=== PATIENT | female | born 1930 | race Hispanic/Latino ===

== ENCOUNTER 2016-11-13 20:30 | Inpatient (IN) | payer MEDICARE ==
[2016-11-13] MEDS ORDERED: NACL 0.9% 1000 ML 1,000 ML ONE (20:42)
[2016-11-13] MEDS ORDERED: CARDIZEM ONE (20:52)
[2016-11-13] MEDS ORDERED: CARDIZEM IV ONE (21:17)
[2016-11-13] MEDS ORDERED: NACL 0.9% 1000 ML 1,000 ML IV ONE (21:21)
--- NOTE | 2016-11-13 21:32 | Emergency Department Report ---
HPI - General Chief Complaint: Fall Time Seen by Provider: 11/13/16 20:54 - HPI HPI: This is a 86-year-old female presents to the emergency department by EMS from home after EMS was called when the patient had a fall and the need assistance. This allegedly was the second fall today. The patient herself does have some history of dementia but has no complaints as to any pain status post fall. When EMS got to the house and they put her up in a chair they found her to have a very fast heart rate. They did an EKG and thought it was SVT and attempted 6 mg and then 12 mg of adenosine without any conversion. Patient presents to the emergency department still with significant tachycardia but no particular complaints. She does not have any past medical history but also has not seen a physician since the mid-s. ED Past Medical Hx - Past Medical History Previous Medical History?: No - Surgical History Past Surgical History?: Yes Additional Surgical History: hysterectomy (1977) - Social History Smoking Status: Never Smoker Substance Use Type: None - Medications Home Medications: Home Medications Medication Instructions Recorded Confirmed Last Taken Type No Known Home Medications [No 11/13/16 11/13/16 Unknown History Reported Home Medications] ED Review of Systems ROS: Stated complaint: POSSIBLE SVT Other details as noted in HPI Comment: All other systems reviewed and negative Constitutional: denies: chills, fever Eyes: denies: eye pain, eye discharge, vision change ENT: denies: ear pain, throat pain Respiratory: denies: cough, shortness of breath, wheezing Cardiovascular: other (tachycardia). denies: chest pain, palpitations Gastrointestinal: denies: abdominal pain, nausea, diarrhea Genitourinary: denies: urgency, dysuria, discharge Musculoskeletal: denies: back pain, joint swelling, arthralgia Skin: denies: rash, lesions Neurological: weakness. denies: headache Physical Exam - Physical Exam Vital Signs: Vital Signs 11/13/16 11/13/16 20:41 21:12 Temperature 99.7 F H Pulse Rate 161 H 87 Respiratory 19 14 Rate Blood Pressure 110/78 123/54 [Left] O2 Sat by Pulse 96 98 Oximetry Physical Exam: GENERAL: The patient is well-developed well-nourished. HEENT: Normocephalic. Atraumatic. Extraocular motions are intact. Patient has moist mucous membranes. Pupils equal reactive to light bilaterally. NECK: Supple. Trachea is midline. CHEST/LUNGS: Clear to auscultation. There is no respiratory distress noted. HEART/CARDIOVASCULAR: Irregularly irregular with moderate to severe tachycardia. ABDOMEN: Abdomen is soft, nontender. Patient has normal bowel sounds. There is no abdominal distention. SKIN: Skin is warm and dry. NEURO: The patient is awake, alert. The patient is cooperative. The patient has no focal neurologic deficits. The patient has normal speech. MUSCULOSKELETAL: There is no tenderness or deformity. There is no limitation range of motion. There is no evidence of acute injury. ED Course Vital Signs 11/13/16 11/13/16 20:41 21:12 Temperature 99.7 F H Pulse Rate 161 H 87 Respiratory 19 14 Rate Blood Pressure 110/78 123/54 [Left] O2 Sat by Pulse 96 98 Oximetry ED Medical Decision Making - Lab Data Result diagrams: 11/13/16 21:14 11/13/16 21:14 - EKG Data -: EKG Interpreted by Me - EKG Data Interpretation: other (initial fibrillation, left axis deviation, rate of 90 bpm , LVH, Q waves in septal leads, nonspecific ST-T waves) The initial EKG. More like a SVT at 162 bpm with some nonspecific ST-T waves 11/13/16 21:33 - Radiology Data Radiology results: report reviewed, image reviewed interpreted by me: Chest x-ray does not show any pleural effusion, obvious signs of pneumonia or any pneumothorax. No acute process noted. CT of the head does not show any acute bleed, shift, mass, ischemia or skull fracture. - Medical Decision Making 86-year-old female presents the emergency department after she was having some falls and needed assistance getting up. The patient has no real complaints when she arrives but she was found to have severe tachycardia by EMS and upon presentation to the ER. The EKG was very fast and appeared consistent with SVT so she was given adenosine both in route as well as when she arrived to the emergency department. She did not convert but when it slowed down and looked irregular. Patient had an regular pulse. She was given IV dose of Cardizem and the heart rate slowed down and improved and repeat EKG showed atrial fibrillation with RVR. This is new onset for this patient. She eventually needed another bolus of Cardizem as well as starting the drip. The patient would most likely need anticoagulation, and with her recent falls, a CT of the head was done that did not show any bleed, shift, mass or any acute process. Patient's labs show some mild renal insufficiency, negative troponins. She was given a dose of Lovenox for anticoagulation and will be admitted to the hospital for further evaluation and treatment and has been accepted for admission by the hospitalist, Dr. Shelton. Critical Care Time: No Critical care attestation.: If time is entered above; I have spent that time in minutes in the direct care of this critically ill patient, excluding procedure time. ED Disposition Clinical Impression: Atrial fibrillation with RVR, New onset atrial fibrillation, History of recent fall, Renal insufficiency Disposition: OP ADMIT IP TO THIS HOSP Is pt being admited?: Yes Condition: Stable Referrals: MAY SCHNEIDER MD [Primary Care Provider] - 3-5 Days Time of Disposition: 01:26
[2016-11-13 21:33] LABS: Basophils % (Auto) 0.3 % (0.0-1.8); Mean Corpuscular HGB Conc 33 % (30-34); Mean Corpuscular Hemoglobin 31 pg (28-32); Mean Corpuscular Volume 95 fl (79-97); Platelet Count 238 K/mm3 (140-440); Red Blood Count 4.12 M/mm3 (3.65-5.03); Red Cell Distribution Width 13.6 % (13.2-15.2); White Blood Count 12.9 K/mm3 (4.5-11.0)
[2016-11-13 21:42] LABS: INR 1.16 (0.87-1.13)
[2016-11-13 21:43] LABS: Partial Thromboplastin Time 28.1 Sec. (24.2-36.6)
[2016-11-13 21:55] LABS: Alanine Aminotransferase 10 units/L (7-56); Albumin 3.5 g/dL (3.9-5); Albumin/Globulin Ratio 1.1 %; Alkaline Phosphatase 73 units/L (35-129); Anion Gap 23 mmol/L; BUN/Creatinine Ratio 16.36; Blood Urea Nitrogen 18 mg/dL (7-17); Calcium 9.4 mg/dL (8.4-10.2); Carbon Dioxide 18 mmol/L (22-30); Chloride 102.7 mmol/L (98-107); Glucose 149 mg/dL (65-100); Potassium 3.2 mmol/L (3.6-5.0); Sodium 140 mmol/L (137-145); Total Protein 6.8 g/dL (6.3-8.2)
[2016-11-13] MEDS ORDERED: K-DUR PO ONE (22:13)
[2016-11-13] MEDS ORDERED: CARDIZEM/D5W 100MG/100ML 100 MG/100 ML BAG IV ONE ×2 (22:16→22:41)
[2016-11-13 22:55] LABS: Bilirubin,Urine NEG (Negative); Blood,Urine SM (Negative); Ketones,Urine TR mg/dL (Negative); Leukocyte Esterase,Urine TR (Negative); Mucus,Urine 3+ /HPF; Nitrite,Urine NEG (Negative)
--- NOTE | 2016-11-14 00:19 | Cat Scan Report ---
FINAL REPORT EXAM: CT HEAD/BRAIN WO CON HISTORY: Falls, trauma TECHNIQUE: Contiguous axial images of the head were obtained without the use of intravenous contrast. PRIORS: None. FINDINGS: The cerebral hemispheres are without focal lesions. There is no evidence of acute infarct or intracranial hemorrhage. There is no mass lesion or mass effect. There are no abnormal extra-axial fluid collections. The ventricles and sulci are prominent consistent with generalized loss of brain substance, appropriate for age. There is deep white matter lucency consistent with advanced chronic microvascular ischemic disease. The visualized skull and orbits are unremarkable. There opacification of the right sphenoid sinus. IMPRESSION: 1. No evidence of acute infarct or intracranial hemorrhage. 2. White matter lucency consistent with advanced chronic microvascular ischemic disease.
[2016-11-14] MEDS ORDERED: LOVENOX SUB-Q ONE (00:24)
[2016-11-14] MEDS ORDERED: ZOFRAN IV PRN (03:09)
[2016-11-14] MEDS ORDERED: MILK OF MAGNESIA PO PRN (03:09)
[2016-11-14] MEDS ORDERED: DULCOLAX PR PRN (03:09)
--- NOTE | 2016-11-14 03:17 | History and Physical Report ---
History of Present Illness Date of examination: 11/14/16 History of present illness: 86-year-old woman with no known medical problems who has not been to the doctor since the 1960s comes emergency room today because she had fallen twice at home. EMS was called and she was tachycardic. She was found to be in A. fib and was started on a Cardizem drip in the emergency room Review Of Systems: Constitutional: no fever, chills, weight loss Ears, eyes, nose, mouth and throat: no nasal congestion, no nasal discharge, no sinus pressure, blurry vision, diplopia Neck: No neck pain or rigidity. Cardiovascular: chest pain, orthopnea, palpitations Respiratory: No shortness of breath, cough Gastrointestinal: abdominal pain, hematochezia Genitourinary : no dysuria, frequency , hematuria Musculoskeletal: no joint swelling or muscle ache Integumentary: no rash, no pruritis Neurological: no parathesias, focal weakness Endocrine: no cold or heat intolerance, no polyuria or polydipsia Hematologic/Lymphatic: no easy bruising, no easy bleeding, no gland swelling Allergic/Immunologic: no urticaria, no angioedema. PAST MEDICAL HISTORY:None PAST SURGICAL HISTORY: Hysterectomy FAMILY HISTORY: Hypertension SOCIAL HISTORY: Denies alcohol, tobacco, drugs Medications and Allergies Allergies Allergy/AdvReac Type Severity Reaction Status Date / Time No Known Allergies Allergy Verified 11/13/16 20:45 Home Medications Medication Instructions Recorded Confirmed Last Taken Type No Known Home Medications [No 11/13/16 11/13/16 Unknown History Reported Home Medications] Active Meds: Active Medications Diltiazem HCl (Cardizem/D5w 100mg/100ml) 100 mg in 100 mls @ 5 mls/hr IV TITR ONE; 5 MG/HR PRN Reason: Protocol Stop: 11/14/16 18:40 Last Admin: 11/13/16 22:44 Dose: 5 mg/hr, 5 mls/hr Exam - Physical Exam Narrative exam: Gen. appearance: Patient lying in bed, no apparent distress HEENT: Normocephalic, atraumatic, pupils equally round and reactive to light, extraocular movement intact, and no sclericterus,. No JVD or thyromegaly or nodule,neck supple, no carotid bruit ,mucous membranes moist, no exudate or erythema Heart: S1, S2, irregular, irregular rate and rhythm Lungs: Clear to auscultation bilaterally, breathing comfortable Abdomen: Positive bowel sounds, nontender, nondistended, no organomegaly Extremity: No edema, cyanosis, clubbing Skin: No rash, nodules, warm, dry Neuro: Oriented 3, cranial nerves II-12 intact, speech is fluent, motor and sensory intact - Constitutional Vitals: Temp Pulse Resp BP Pulse Ox 99.7 F H 86 18 121/65 100 11/13/16 20:41 11/14/16 01:05 11/14/16 00:45 11/14/16 00:45 11/14/16 00:45 Results - Labs CBC & Chem 7: 11/15/16 07:00 11/15/16 Unknown Labs: Abnormal lab results 11/13/16 11/13/16 11/13/16 Range/Units 21:14 21:14 21:14 WBC 12.9 H (4.5-11.0) K/mm3 Lymph % (Auto) 8.8 L (13.4-35.0) % Lymph # 1.1 L (1.2-5.4) K/mm3 Seg Neutrophils % 87.3 H (40.0-70.0) % Seg Neutrophils # 11.3 H (1.8-7.7) K/mm3 INR 1.16 H (0.87-1.13) Potassium 3.2 L (3.6-5.0) mmol/L Carbon Dioxide 18 L (22-30) mmol/L BUN 18 H (7-17) mg/dL Glucose 149 H (65-100) mg/dL Albumin 3.5 L (3.9-5) g/dL Urine WBC (Auto) (0.0-6.0) /HPF 11/13/16 Range/Units 22:00 WBC (4.5-11.0) K/mm3 Lymph % (Auto) (13.4-35.0) % Lymph # (1.2-5.4) K/mm3 Seg Neutrophils % (40.0-70.0) % Seg Neutrophils # (1.8-7.7) K/mm3 INR (0.87-1.13) Potassium (3.6-5.0) mmol/L Carbon Dioxide (22-30) mmol/L BUN (7-17) mg/dL Glucose (65-100) mg/dL Albumin (3.9-5) g/dL Urine WBC (Auto) 8.0 H (0.0-6.0) /HPF - Imaging and Cardiology EKG: image reviewed Chest x-ray: image reviewed CT Scan - head: report reviewed Assessment and Plan Assessment A. fib with RVR Plan Admit to medicine Continue Cardizem drip, check cardiac enzymes, echo Consult cardiology, critical care Start full dose Lovenox, aspirin DVT prophylaxis initiated
[2016-11-14 03:57] LABS: Creatine Kinase MB 5.3 ng/mL (0.0-4.0)
--- NOTE | 2016-11-14 08:27 | XRay Report ---
PORTABLE CHEST INDICATION: Chest pain. COMPARISON: None similar at this institution. FINDINGS: Portable, frontal chest radiograph suggests approximately 9 cm hiatal hernia. Otherwise normal cardiomediastinal silhouette. Aortic knob calcifications. Slightly prominent bronchovascular markings centrally. No pleural effusions or CHF. EKG leads. Demineralized bones with few degenerative changes. CONCLUSION: No acute chest process with hiatal hernia not excluded, as described. Please correlate. Thank you for the opportunity to participate in this patient's care.
[2016-11-14 09:07] LABS: Creatine Kinase MB 6.9 ng/mL (0.0-4.0)
[2016-11-14 09:09] LABS: Creatine Kinase 1422 units/L (30-135)
--- NOTE | 2016-11-14 09:31 | Consultation ---
History of Present Illness Consult date: 11/14/16 Requesting physician: ONEIL BOLTON Consult reason: atrial fibrillation History of present illness: The pt is an 86 YO female with a past medical history significant for Alzheimer' s disease. She is previously unknown to our practice. Per her daughter at bedside, she has not seen any doctors since the . She presented to the ED via EMS from home after falling twice at home. Pt states that she was standing up from her chair and got weak and fell down for the first fall and then was going down her stairs several hours later and go weak again and fell again. When EMS got to the house and they put her up in a chair they found her to have a very fast heart rate. They did an EKG and thought it was SVT and attempted 6 mg and then 12 mg of adenosine without any conversion. Patient presents to the emergency department still with significant tachycardia but no particular complaints. Admission EKG showed SVT, HR 157. She was given IV cardizem and adenosine in ED and then slowed to AFib with HR 90s - 110s. On evaluation, pt denies any complaints, including palpitations, chest pain, SOB, n/v, diaphoresis , dizziness or syncope. Her family denies any prior cardiac issues. Past History Past Medical History: other (dementia) Past Surgical History: hysterectomy () Social history: , lives with family. denies: smoking, alcohol abuse, prescription drug abuse Medications and Allergies Allergies Allergy/AdvReac Type Severity Reaction Status Date / Time No Known Allergies Allergy Verified 11/13/16 20:45 Home Medications Medication Instructions Recorded Confirmed Last Taken Type No Known Home Medications [No 11/13/16 11/13/16 Unknown History Reported Home Medications] Active Meds: Active Medications Acetaminophen (Tylenol) 650 mg PO Q4H PRN PRN Reason: Pain MILD(1-3)/Fever >100.5/CEE Aspirin (Baby Aspirin) 81 mg PO QDAY ANDREZ Bisacodyl (Dulcolax) 10 mg MT QDAY PRN PRN Reason: Constipation unrelieved by MOM Enoxaparin Sodium (Lovenox) 70 mg 1 mg/kg (70 mg) SUB-Q Q12H ANDREZ Diltiazem HCl (Cardizem/D5w 100mg/100ml) 100 mg in 100 mls @ 5 mls/hr IV TITR ONE; 5 MG/HR PRN Reason: Protocol Stop: 11/14/16 18:40 Last Admin: 11/13/16 22:44 Dose: 5 mg/hr, 5 mls/hr Magnesium Hydroxide (Milk Of Magnesia) 30 ml PO Q4H PRN PRN Reason: Constipation Ondansetron HCl (Zofran) 4 mg IV Q8H PRN PRN Reason: N/V unrelieved by Reglan Pneumococcal Polyvalent Vaccine (Pneumovax 23) 0.5 ml IM .ONCE ONE Stop: 11/14/16 12:01 Review of Systems All systems: negative (no complaints) Physical Examination Vital Signs Pulse Resp Pulse Ox 167 H 22 97 11/13/16 20:39 11/13/16 20:39 11/13/16 20:39 General appearance: no acute distress HEENT: Positive: PERRL, Normocephaly, Mucus Membranes Moist Neck: Positive: neck supple, trachea midline Cardiac: Positive: irregularly irregular, S1/S2, Systolic Murmur, Tachycardia Lungs: Positive: clear to auscultation Neuro: Positive: Grossly Intact, Cranial Nerve 2-12 Intact Abdomen: Positive: Unremarkable, Soft, Active Bowel Sounds. Negative: Tender Skin: Positive: Clear. Negative: Rash, Wound Musculoskeletal: No Fluid Collection, No Pain, Normal Range of Motion Extremities: Absent: edema Results 11/13/16 21:14 11/14/16 08:36 Cardiac Enzymes 11/14/16 11/14/16 Range/Units 03:07 08:36 CK-MB (CK-2) 5.3 H 6.9 H (0.0-4.0) ng/mL - Imaging and Cardiology Echo: pending EKG: image reviewed EKG interpretations - Telemetry EKG Rhythm: Atrial Fibrillation - EKG Supraventricular dysrhythmia: atrial fibrillation Assessment and Plan Assessment: Atrial fibrillation with RVR - ? new onset; TSH WNL. HTN Hypokalemia Leukocytosis / low-grade fever - CXR with NAF. Nonsyncopal falls Dementia Plan: Obtain echo. Replete K+. Repeat BMP in AM. Initiate lopressor, 50mg PO BID. Wean cardizem gtt off for resting HR <100bpm. Pt with current CHADS score of 3 and thus snf anticoagulation in regards to atrial fibrillation is recommended. Indications, potential risks and benefits of rn long term care anticoagulation reviewed with pt and pt's family at bedside and they decline long-term anticoagulation at this time in setting of pt 's frequent falls, advanced age, dementia, and history of medical noncompliance. Assessment and plan reviewed with pt and pt's family at bedside. The patient has been seen in conjunction with Dr. RUPA Hyde who agrees with the assessment and plan of care.
[2016-11-14 09:55] LABS: BUN/Creatinine Ratio 17.77; Calcium 9.1 mg/dL (8.4-10.2); Chloride 104.9 mmol/L (98-107); Magnesium 1.9 mg/dL (1.7-2.3); Phosphorous 2.2 mg/dL (2.5-4.5)
[2016-11-14] MEDS ORDERED: POTASSIUM CHLORIDE FEEDTUBE ONE (10:19)
--- NOTE | 2016-11-14 10:26 | Admit Criteria Form ---
Admission Criteria Documentation: CARDIOLOGY GRG Clinical Indications for Admission to Inpatient Care (Turner/check or initial the applicable condition/criteria) Hospital admission is needed for appropriate care of the patient because of ANY ONE of the following: [ ] I. Hemodynamic instability as indicated by ALL of the following (1)(2)(3) (4)(5)(6)(7)(8)(9)(10) [ ]a) Vital sign abnormality not readily corrected by appropriate treatment with 12-24 hours for ANY ONE: [ ]i) Hypotension that persists despite appropriate treatment (eg, volume repletion) [ ]ii) Tachycardiathat persists despite appropriate tx ( e.g., analgesia, fluids, sedation as indicated [ ]iii) Orthostatic vital sign changes that persists despite appropriate treatment (eg, volume repletion) [ ]b) Vital sign abnormailty that is severe indicated by ANY ONE of the following: [ ]i) Inadequate perfusion indicated by ANY ONE of the following: [ ] 1) Lactic acidosis (> 2 mmol/L) [ ] 2) New abnormal capillary refill (> 3 seconds) [ ] 3) Reduced urine output [ ] 4) New altered mental status [ ] 5) Myocardial Ischemia [ ] 6) Other metabolic acidosis (arterial pH <7.35 ) not otherwise explained. [ ]ii) Mean arterial pressure[A] less than 60 mm Hg [ ]iii) Mean arterial pressure[A] less than 70 mm Hg after 30 minutes of appropriate treatment (eg, fluid resuscitation) [ ]iv) Sustained heart rate greater than 120 beats per minute in adult or child 6 years or older[B] [ ]v) IV inotropic or vasopressor medication required to maintain adequate blood pressure or perfusion [ ] II. Severe heart failure as indicated by ANY ONE of the following(17)(18) [ ]a) Respiratory distress [ ]b) Hypotension [ ]c) Debilitating anasarca refractory to therapy (eg, tissue breakdown with infection)[C](19) [ ]d) Cardiac arrhythmias of immediate concern [ ]e) Myocardial ischemia [ ] III. Cardiac arrhythmias or findings of immediate concern indicated by ANY ONE of the following (21)(22): [ ] a) Heart rhythms that are inherently dangerous or unstable indicated by ANY ONE of the following (23)(24)(25): [ ] i) Resuscitated ventricular fibrillation or cardiac arrest [ ] ii) Ventricular escape rhythm [ ] iii) Sustained ventricular tachycardia (30 seconds or more of ventricular rhythm at greater than 100 beats per minute) [ ] iv) Nonsustained ventricular tachycardia and ANY ONE of the following: [ ] 1) Suspected cardiac ischemia as cause or consequence of ventricular tachycardia [ ] 2) Acute myocarditis [ ] b) Unstable cardiac conduction defects indicated by ANY ONE of the following(25)(26)(27) [ ] i) Type II second-degree atrioventricular block [ ]ii) Third-degree atrioventricular block [ ]iii) New-onset left bundle branch block with suspected myocardial ischemia [ ]c) Any heart rhythm and ANY ONE of the following (23)(24)(28)(29) (30) [ ] i) Continuous long-term ECG monitoring needed (e.g., initiation of drug requiring monitoring for more than 24 hours) [ ] ii) Patient has automatic implanted cardioverter defibrillator that is repeatedly firing, malfunctioning, or in need of immediate adjustment of settings beyond the scope of ambulatory or observation care [ ]d) Heart rhythms of concern due to ANY ONE of the following: [ ] i) Hypotension [ ] ii) Respiratory distress [ ] iii) Association with other significant symptoms (e.g., bradycardia with syncope or ongoing dizziness, supraventricular tachycardia with chest pain (28)(29)(31) [ ] IV. Monitoring for cardiac contusion beyond the scope of observation care needed [A](32)(33)(34) [ ] V. Surgical or device complication (e.g., valve replacement complication , ICD disfunction or pacemaker dysfunction) (49)(50)(51)(52)(53)(54) [ ] . Inpatient palliative care needed. [F](51)(52) Also use Inpatient Palliative Care Criteria [ ] VII. Nonbacterial thrombotic (marantic) endocarditis(43)(44)(55)(56)(57) [X ] VIII. Cardiology condition, symptom, or finding for which emergency and observation care has failed or are not considered appropriate. [ ] IX. Acute valvular disease requiring inpatient as indicated by ANY ONE of the following (40)(41) [ ]a) Acute valvular regurgitation (42) [ ]b) Noninfectious valvulitis (43)(44) [ ]c) Obstructive valve thrombosis (45)(46) [ ]d) Paravalvular leak(47)(48) [ ]e) Other significant valvular disorder remaining after emergency or observation level of care (as appropriate) [ ]X. Pericardial disease requiring inpatient treatment as indicated by ANY ONE of the following (35)(36)(37)(38) [ ]a) Suspected tamponade [ ]b) Hemopericardium [ ]c) Other significant pericardial disorder remaining after emergency or observation level of care (as appropriate)(39) [ ] XI. Cardiac ischemia beyond scope of emergency and observation care. [ ] XII. Cyanotic heart disease requiring inpatient care as indicated by 1 or more of the following(58)(59)(60): [ ]a) Acute onset of hypoxemia [ ]b) Exacerbation [ ] XIII. Hypertension requiring inpatient treatment as indicated by ANYONE of the following(11)(12)(13)(14): [ ]a) Severe hypertension (SBP greater than 180 mm Hg or DBP greater than 110 mm Hg, or greater than the 95th percentile for age, gender, and height in pediatric patients) that cannot be controlled (eg, to SBP less than 160 mm Hg and DBP less than 100 mm Hg) by emergency department or observation care treatment(15) [ ]b) Acute end organ damage secondary to hypertension (SBP greater than 140 mm Hg or DBP greater than 90 mm Hg) as indicated by ANYONE of the following: [ ] i) Hypertensive encephalopathy (eg, Altered mental status)(16) [ ] ii) Cerebral infarction [ ] iii) Intracranial hemorrhage [ ] iv) Myocardial ischemia or infarction [ ] v) Heart failure (eg, pulmonary edema) [ ] vi) Aortic dissection [ ] vii) Increased creatinine (new) with reduction of more than 50% in estimated glomerular filtration rate from baseline [ ] viii) Papilledema [ ] ix) Retinal hemorrhage [ ] x) Microangiopathic hemolytic anemia [ ] xi) Seizure [ ] xii) Other significant finding secondary to hypertension [ ] XIV. Complications of transplanted heart indicated by ANY ONE of the following(61): [ ]a) Acute graft rejection requiring inpatient management (eg, intravenous imunosuppression)(62)(63) [ ]b) Acute graft heart failure indicated by ANY ONE of the following(64): [ ] i) Hemodynamic instability [ ] ii) Cardiac arrhythmias of immediate concern [ ] iii) Pulmonary edema that is very severe (eg, mechanical ventilation needed, imminent or likely, need for 100% oxygen to keep oxygen saturation above 90%) [ ] iv) Pulmonary edema that is persistent as indicated by ALL of the following: [ ] 1) New need for oxygen therapy to keep oxygen saturation above 90 % (or increased FiO2 need from baseline) [ ] 2) Has not improved sufficiently with emergency department or observation care IV diuretics or other heart failure treatments[E]. [ ] iv) Altered mental status that is severe or persistent [ ] iv) Increased creatinine (new on laboratory test) with reduction of more than 50% in estimated glomerular filtration rate from baseline [ ] iv) Progressively (ongoing) rising creatinine (known from past laboratory test) with reduction of more than 25% in estimated glomerular filtration rate from baseline [ ] iv) Acute renal failure [ ] iv) Acute peripheral ischemia (eg, examination shows pulseless, cool, mottled, or cyanotic extremity) [ ] iv) Pulmonary artery catheter monitoring needed [ ] iv) Other sign or symptom of heart failure requiring inpatient treatment (ie, too severe or not responsive to outpatient and observation care treatment) [ ]c) Infection requiring inpatient management (eg, Hemodynamic instability, need for intravenous antimicrobial treatment)(66)(67)(68)(69)(70) [ ]d) Cardiac allograft vasculopathy requiring inpatient management (eg evidence of cardiacischemia)(71) [ ]e) Other complication of transplanted heart (eg, stroke, severe pulmonary hypertension, severe valvular dysfunction) requiring inpatient management(72) The original [employer] content created by [employer] has been revised. The portions of the content which have been revised are identified through the use of italic text or in bold, and [facility] has neither reviewed nor approved the modified material. All other unmodified content is copyright [facility]. Please see references footnoted in the original [facility] edition 2017 Admission Criteria Met: Yes
[2016-11-14] MEDS: BABY ASPIRIN PO SCH (11:03)
[2016-11-14] MEDS: LOPRESSOR PO SCH ×2 (11:05→22:05)
--- NOTE | 2016-11-14 11:12 | Consultation ---
History of Present Illness - Reason for Consult Consult date: 11/14/16 ICU monitoring, Afib with RVR - History of Present Illness 86 y/o female, presents from home after falls. Found to be in Afib with RVR. STarted on dilt drip. Found to have hypokalemia and replaced with PO K. No repeat drawn this am as of yet. Family at bedside. Still in afib on dilt of only 5 Past History Past Medical History: other (dementia) Past Surgical History: hysterectomy (1970s) Social history: , lives with family. denies: smoking, alcohol abuse, prescription drug abuse Medications and Allergies Allergies Allergy/AdvReac Type Severity Reaction Status Date / Time No Known Allergies Allergy Verified 11/13/16 20:45 Home Medications Medication Instructions Recorded Confirmed Last Taken Type No Known Home Medications [No 11/13/16 11/13/16 Unknown History Reported Home Medications] Active Meds: Active Medications Acetaminophen (Tylenol) 650 mg PO Q4H PRN PRN Reason: Pain MILD(1-3)/Fever >100.5/CEE Aspirin (Baby Aspirin) 81 mg PO QDAY [facility] Last Admin: 11/14/16 11:03 Dose: 81 mg Bisacodyl (Dulcolax) 10 mg MI QDAY PRN PRN Reason: Constipation unrelieved by MOM Enoxaparin Sodium (Lovenox) 70 mg 1 mg/kg (70 mg) SUB-Q Q12H [facility] Diltiazem HCl (Cardizem/D5w 100mg/100ml) 100 mg in 100 mls @ 5 mls/hr IV TITR ONE; 5 MG/HR PRN Reason: Protocol Stop: 11/14/16 18:40 Last Admin: 11/13/16 22:44 Dose: 5 mg/hr, 5 mls/hr Magnesium Hydroxide (Milk Of Magnesia) 30 ml PO Q4H PRN PRN Reason: Constipation Metoprolol Tartrate (Lopressor) 50 mg PO BID [facility] Last Admin: 11/14/16 11:05 Dose: 50 mg Ondansetron HCl (Zofran) 4 mg IV Q8H PRN PRN Reason: N/V unrelieved by Reglan Pneumococcal Polyvalent Vaccine (Pneumovax 23) 0.5 ml IM .ONCE ONE Stop: 11/14/16 12:01 Review of Systems All systems: negative Exam - Constitutional Vitals: Temp Pulse Resp BP Pulse Ox 99.2 F 112 H 23 139/80 92 11/14/16 09:00 11/14/16 11:05 11/14/16 09:31 11/14/16 11:05 11/14/16 08:16 General appearance: Present: no acute distress - Neck Neck: Present: supple - Respiratory Respiratory effort: normal Respiratory: bilateral: CTA - Cardiovascular Rhythm: irregularly irregular (and tachycardic) Results - Labs CBC & Chem 7: 11/13/16 21:14 11/14/16 08:36 Labs: Abnormal lab results 11/14/16 11/14/16 11/14/16 Range/Units 03:07 05:07 08:36 Potassium (3.6-5.0) mmol/L Carbon Dioxide (22-30) mmol/L Glucose (65-100) mg/dL POC Glucose 118 H (70-105) Phosphorus (2.5-4.5) mg/dL Total Creatine Kinase 1103 H 1422 H (30-135) units/L CK-MB (CK-2) 5.3 H 6.9 H (0.0-4.0) ng/mL 11/14/16 Range/Units 08:36 Potassium 3.0 L (3.6-5.0) mmol/L Carbon Dioxide 19 L (22-30) mmol/L Glucose 148 H (65-100) mg/dL POC Glucose (70-105) Phosphorus 2.20 L (2.5-4.5) mg/dL Total Creatine Kinase (30-135) units/L CK-MB (CK-2) (0.0-4.0) ng/mL - Imaging and Cardiology Chest x-ray: report reviewed Assessment and Plan 86 y/o female with afib with RVR and possible dementia 1. Increase rate on dilt, attempt to rate control and convert 2. Anticoagulation with therapeutic dosing of lovenox 3. Follow up cards recs 4. Electrolytes are back, will replace K and Phos, may be contributing to tachycardia and irregular rate.
[2016-11-14] MEDS ORDERED: K-DUR PO ONE (12:00)
[2016-11-14] MEDS ORDERED: KPHOS 40 MMOL in NACL 0.9% 500 ML 500 ML IV ONE (12:00)
[2016-11-14] MEDS ORDERED: PNEUMOVAX 23 IM ONE (12:00)
[2016-11-14] MEDS: LOVENOX SUB-Q SCH (12:19)
[2016-11-14] MEDS: ROCEPHIN/NS 1 GM/50 ML 1 GM/50 ML BAG IV SCH (18:34)
[2016-11-14] MEDS: TYLENOL PO PRN (22:05)
[2016-11-14] MEDS ORDERED: ARTIFICIAL TEARS OPHTH OINT OU PRN (22:26)
[2016-11-14] MEDS ORDERED: APRESOLINE IV PRN (22:26)
[2016-11-15] MEDS: LOVENOX SUB-Q SCH ×2 (00:06→12:25)
[2016-11-15 06:32] LABS: Anion Gap 21 mmol/L; BUN/Creatinine Ratio 21.42; Blood Urea Nitrogen 15 mg/dL (7-17); Calcium 9.1 mg/dL (8.4-10.2); Carbon Dioxide 18 mmol/L (22-30); Chloride 104.4 mmol/L (98-107); Glucose 104 mg/dL (65-100); Sodium 139 mmol/L (137-145)
[2016-11-15 07:28] LABS: Basophils % (Auto) 0.3 % (0.0-1.8); Eosinophils % (Auto) 0.7 % (0.0-4.3); Hematocrit 35.1 % (30.3-42.9); Hemoglobin 12.4 gm/dl (10.1-14.3); Mean Corpuscular HGB Conc 35 % (30-34); Mean Corpuscular Hemoglobin 32 pg (28-32); Mean Corpuscular Volume 91 fl (79-97); Platelet Count 215 K/mm3 (140-440); Red Blood Count 3.84 M/mm3 (3.65-5.03); Red Cell Distribution Width 13.6 % (13.2-15.2); White Blood Count 10.1 K/mm3 (4.5-11.0)
[2016-11-15] MEDS: LOPRESSOR PO SCH ×2 (09:23→21:55)
[2016-11-15] MEDS: BABY ASPIRIN PO SCH (09:23)
--- NOTE | 2016-11-15 09:36 | Progress Note ---
Assessment and Plan 86 y/o female with afib with RVR and possible dementia 1. Follow up cards recs. Off dilt drip now. Will likely be placed on PO therapy. 2. Anticoagulation with therapeutic dosing of lovenox 3. Electrolytes are back, will replace K and Phos, may be contributing to tachycardia and irregular rate. 4. Ok with transfer out of ICU today. Will sign off once out of unit. Subjective Date of service: 11/15/16 Interval history: No acute events, in afib but rate is controlled. Objective - Constitutional Vitals: Vital Signs - 12hr 11/14/16 11/14/16 11/14/16 22:00 22:05 23:00 Temperature Pulse Rate 88 97 H 86 Respiratory 32 H 26 H 28 H Rate Blood Pressure 157/79 138/74 O2 Sat by Pulse 91 92 Oximetry 11/14/16 11/14/16 11/15/16 23:47 23:50 00:00 Temperature 98.6 F 98.6 F Pulse Rate 87 Respiratory 24 Rate Blood Pressure 134/75 O2 Sat by Pulse 93 Oximetry 11/15/16 11/15/16 11/15/16 01:00 02:00 03:00 Temperature Pulse Rate 102 H 91 H 86 Respiratory 24 23 29 H Rate Blood Pressure 132/69 143/80 148/87 O2 Sat by Pulse 94 91 93 Oximetry 11/15/16 11/15/16 11/15/16 04:00 05:00 06:00 Temperature 98.9 F Pulse Rate 91 H 86 88 Respiratory 28 H 25 H 23 Rate Blood Pressure 145/76 145/74 134/77 O2 Sat by Pulse 93 95 95 Oximetry 11/15/16 11/15/16 11/15/16 07:00 08:00 09:23 Temperature 99.5 F Pulse Rate 99 H 91 H 97 H Respiratory 22 27 H Rate Blood Pressure 171/91 134/81 152/92 O2 Sat by Pulse 92 92 Oximetry General appearance: Present: no acute distress - Neck Neck: supple - Respiratory Respiratory effort: normal Respiratory: bilateral: CTA - Breasts Breasts: deferred - Cardiovascular Rhythm: irregularly irregular Extremities: no ischemia - Labs CBC & Chem 7: 11/15/16 07:00 11/15/16 Unknown Labs: Abnormal lab results 11/14/16 11/14/16 11/15/16 Range/Units 08:36 11:37 07:00 MCHC 35 H (30-34) % Seg Neutrophils % 75.5 H (40.0-70.0) % Potassium 3.0 L (3.6-5.0) mmol/L Carbon Dioxide 19 L (22-30) mmol/L Glucose 148 H (65-100) mg/dL POC Glucose 143 H (70-105) Phosphorus 2.20 L (2.5-4.5) mg/dL 11/15/16 Range/Units Unknown MCHC (30-34) % Seg Neutrophils % (40.0-70.0) % Potassium (3.6-5.0) mmol/L Carbon Dioxide 18 L (22-30) mmol/L Glucose 104 H (65-100) mg/dL POC Glucose (70-105) Phosphorus (2.5-4.5) mg/dL
--- NOTE | 2016-11-15 09:48 | Progress Note ---
Assessment and Plan Assessment: Atrial fibrillation with RVR - ? new onset; TSH WNL. HTN Hypokalemia - repleted. Leukocytosis / low-grade fever - CXR with NAF. Nonsyncopal falls Dementia Plan: Await echo. Cardizem gtt weaned off. Increase lopressor to 50mg PO TID. 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 Indications, potential risks and benefits of chcf anticoagulation reviewed with pt and pt's family at bedside and they decline long-term anticoagulation at this time in setting of pt 's frequent falls, advanced age, dementia, and history of medical noncompliance. Currently stable cardiac status. Pt may tx out of ICU to tele from cardiology standpoint. Assessment and plan reviewed with pt and pt's family at bedside. The patient has been seen in conjunction with Dr. iDma Hyde who agrees with the assessment and plan of care. Subjective Date of service: 11/15/16 Principal diagnosis: AFib Interval history: Pt resting comfortably in bed, no complaints. Cardizem gtt weaned off. Pt more agitated today, refused some medications overnight. Remains in AFib with HR 100s , BPs stable. Family at bedside. Objective Last Vital Signs Temp 99.5 F 11/15/16 08:00 Pulse 97 H 11/15/16 09:23 Resp 27 H 11/15/16 08:00 BP 152/92 11/15/16 09:23 Pulse Ox 92 11/15/16 08:00 - Physical Examination General: No Apparent Distress HEENT: Positive: PERRL, Normocephaly, Mucus Membranes Moist Neck: Positive: neck supple, trachea midline Cardiac: Positive: irregularly irregular, S1/S2 Lungs: Positive: clear to auscultation Neuro: Positive: Grossly Intact, Cranial Nerve 2-12 Intact Abdomen: Positive: Unremarkable, Soft, Active Bowel Sounds. Negative: Tender Skin: Positive: Clear. Negative: Rash, Wound Musculoskeletal: No Fluid Collection, No Pain, Normal Range of Motion Extremities: Absent: edema - Labs and Meds CBC 11/15/16 Range/Units 07:00 WBC 10.1 (4.5-11.0) K/mm3 RBC 3.84 (3.65-5.03) M/mm3 Hgb 12.4 (10.1-14.3) gm/dl Hct 35.1 (30.3-42.9) % Plt Count 215 (140-440) K/mm3 Lymph # 1.9 (1.2-5.4) K/mm3 [place] # 0.5 (0.0-0.8) K/mm3 Eos # 0.1 (0.0-0.4) K/mm3 Baso # 0.0 (0.0-0.1) K/mm3 Comprehensive Metabolic Panel 11/14/16 11/15/16 Range/Units 08:36 Unknown Sodium 141 139 (137-145) mmol/L Potassium 3.0 L 4.0 D (3.6-5.0) mmol/L Chloride 104.9 104.4 (98-107) mmol/L Carbon Dioxide 19 L 18 L (22-30) mmol/L BUN 16 15 (7-17) mg/dL Creatinine 0.9 0.7 (0.7-1.2) mg/dL Glucose 148 H 104 H (65-100) mg/dL Calcium 9.1 9.1 (8.4-10.2) mg/dL - Imaging and Cardiology EKG: image reviewed Echo: pending - Telemetry EKG Rhythm: Atrial Fibrillation
[2016-11-15] MEDS: TYLENOL PO PRN (11:52)
--- NOTE | 2016-11-15 17:29 | Progress Note ---
Assessment and Plan Assessment and plan: Patient is a 86 yo woman without past medical history because she hasn't seen a physician since 1978 per daughter, Zina, who presented to the ED with multiple falls at home. She was found to have A. fib with RVR, admitted to the ICU on Cardizem drip. For the last 7-8 months daughter, Zina, has noticed worsening of her mental capacity with waxing and waning memory loss, poor balance and multiple mechanical falls. Patient lives with her at home. CT read as no acute processes but advanced chronic microvascular ischemic changes. This most likely related to advanced dementia. Portable chest x-ray read as no acute processes. Transthoracic echocardiogram read as mild concentric left acute upper cheek, estimated EF 55-60%, abnormal left ventricular systolic function is observed, mild aortic leaflet calcification, mitral annular constipation, mild MR, mild TR, no pericardial effusion. -Atrial fibrillation with a rapid ventricular response: Consulted cardiology, rate control, on therapeutic Lovenox but her recurrent repeated falls excludes the use of anticoagulation and lack of safety -Hypokalemia: bmp am -Sepsis with UTI: get cultures, abx. 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 Follow up on current diagnosis/altered mental status is still present. Overnight uneventful. No cp, sob, n/v or severe headaches. Imaging, old records, testing, labs, nursing notes reviewed. Hospitalist Physical - Physical exam Narrative exam: GEN: Chronic debilitated NAD, AWAKE, ALERT, confused HEENT: NCAT, PERRL, EOMI, OP CLEAR NECK: SUPPLE, NO THYROMEGALY, NO JVD, NO LAD CVS: irregular irregular, NORMAL S1S2 LUNGS/CHEST: CTA B, NORMAL CHEST EXPANSION B, GOOD AIR ENTRY B ABD: SOFT, NTND, GBS, NO REBOUND OR GUARDING EXT/SKIN: NO SIGNIFICANT EDEMA OR RASH MSK: FROM X 4 EXTREMITIES NEURO: CN 2-12 GROSSLY INTACT, NO FOCAL DEFICITS PSY: Agitated, spitting and using curse words - Constitutional Vitals: Temp Pulse Resp BP Pulse Ox 98.6 F 97 H 26 H 152/86 93 11/15/16 12:00 11/15/16 12:00 11/15/16 12:00 11/15/16 12:00 11/15/16 12:00 General appearance: Present: no acute distress Results - Labs CBC & Chem 7: 11/15/16 07:00 11/15/16 Unknown Labs: Laboratory Last Values WBC 10.1 K/mm3 (4.5-11.0) 11/15/16 07:00 RBC 3.84 M/mm3 (3.65-5.03) 11/15/16 07:00 Hgb 12.4 gm/dl (10.1-14.3) 11/15/16 07:00 Hct 35.1 % (30.3-42.9) 11/15/16 07:00 MCV 91 fl (79-97) 11/15/16 07:00 MCH 32 pg (28-32) 11/15/16 07:00 MCHC 35 % (30-34) H 11/15/16 07:00 RDW 13.6 % (13.2-15.2) 11/15/16 07:00 Plt Count 215 K/mm3 (140-440) 11/15/16 07:00 Lymph % (Auto) 19.0 % (13.4-35.0) 11/15/16 07:00 [place] % (Auto) 4.5 % (0.0-7.3) 11/15/16 07:00 Eos % (Auto) 0.7 % (0.0-4.3) 11/15/16 07:00 Baso % (Auto) 0.3 % (0.0-1.8) 11/15/16 07:00 Lymph # 1.9 K/mm3 (1.2-5.4) 11/15/16 07:00 [place] # 0.5 K/mm3 (0.0-0.8) 11/15/16 07:00 Eos # 0.1 K/mm3 (0.0-0.4) 11/15/16 07:00 Baso # 0.0 K/mm3 (0.0-0.1) 11/15/16 07:00 Seg Neutrophils % 75.5 % (40.0-70.0) H 11/15/16 07:00 Seg Neutrophils # 7.6 K/mm3 (1.8-7.7) 11/15/16 07:00 PT 14.7 Sec. (12.2-14.9) 11/13/16 21:14 INR 1.16 (0.87-1.13) H 11/13/16 21:14 APTT 28.1 Sec. (24.2-36.6) 11/13/16 21:14 Sodium 139 mmol/L (137-145) 11/15/16 Unknown Potassium 4.0 mmol/L (3.6-5.0) D 11/15/16 Unknown Chloride 104.4 mmol/L (98-107) 11/15/16 Unknown Carbon Dioxide 18 mmol/L (22-30) L 11/15/16 Unknown Anion Gap 21 mmol/L 11/15/16 Unknown BUN 15 mg/dL (7-17) 11/15/16 Unknown Creatinine 0.7 mg/dL (0.7-1.2) 11/15/16 Unknown Estimated GFR > 60 ml/min 11/15/16 Unknown BUN/Creatinine Ratio 21.42 % 11/15/16 Unknown Glucose 104 mg/dL (65-100) H 11/15/16 Unknown POC Glucose 143 (70-105) H 11/14/16 11:37 Calcium 9.1 mg/dL (8.4-10.2) 11/15/16 Unknown Phosphorus 2.20 mg/dL (2.5-4.5) L 11/14/16 08:36 Magnesium 1.90 mg/dL (1.7-2.3) 11/14/16 08:36 Total Bilirubin 1.10 mg/dL (0.1-1.2) 11/13/16 21:14 AST 14 units/L (5-40) 11/13/16 21:14 ALT 10 units/L (7-56) 11/13/16 21:14 Alkaline Phosphatase 73 units/L (35-129) 11/13/16 21:14 Total Creatine Kinase 1422 units/L (30-135) H 11/14/16 08:36 CK-MB (CK-2) 6.9 ng/mL (0.0-4.0) H 11/14/16 08:36 CK-MB (CK-2) Rel Index 0.4 (0-4) 11/14/16 08:36 Troponin T < 0.010 ng/mL (0.00-0.029) 11/14/16 08:36 Total Protein 6.8 g/dL (6.3-8.2) 11/13/16 21:14 Albumin 3.5 g/dL (3.9-5) L 11/13/16 21:14 Albumin/Globulin Ratio 1.1 % 11/13/16 21:14 TSH 3.120 mlU/mL (0.270-4.200) 11/13/16 21:14 Urine Color [place] (Yellow) 11/13/16 22:00 Urine Turbidity Slightly-cloudy (Clear) 11/13/16 22:00 Urine pH 5.0 (5.0-7.0) 11/13/16 22:00 Ur Specific [place] 1.025 (1.003-1.030) 11/13/16 22:00 Urine Protein 30 mg/dl mg/dL (Negative) 11/13/16 22:00 Urine Glucose (UA) 50 mg/dL (Negative) 11/13/16 22:00 Urine Ketones Tr mg/dL (Negative) 11/13/16 22:00 Urine Blood Sm (Negative) 11/13/16 22:00 Urine Nitrite Neg (Negative) 11/13/16 22:00 Urine Bilirubin Neg (Negative) 11/13/16 22:00 Urine Urobilinogen 4.0 mg/dL (<2.0) 11/13/16 22:00 Ur Leukocyte Esterase Tr (Negative) 11/13/16 22:00 Urine WBC (Auto) 8.0 /HPF (0.0-6.0) H 11/13/16 22:00 Urine RBC (Auto) 9.0 /HPF (0.0-6.0) 11/13/16 22:00 U Epithel Cells (Auto) 5.0 /HPF (0-13.0) 11/13/16 22:00 Hyaline Casts 17 /LPF 11/13/16 22:00 Urine Mucus 3+ /HPF 11/13/16 22:00
[2016-11-15] MEDS: HALDOL IM PRN (17:36)
[2016-11-15] MEDS: ROCEPHIN/NS 1 GM/50 ML 1 GM/50 ML BAG IV SCH (17:37)
[2016-11-16 05:57] LABS: Hematocrit 34.4 % (30.3-42.9); Mean Corpuscular HGB Conc 35 % (30-34); Mean Corpuscular Hemoglobin 32 pg (28-32); Mean Corpuscular Volume 92 fl (79-97); Platelet Count 211 K/mm3 (140-440); Red Blood Count 3.75 M/mm3 (3.65-5.03); Red Cell Distribution Width 13.7 % (13.2-15.2); White Blood Count 7.8 K/mm3 (4.5-11.0)
[2016-11-16 06:04] LABS: Anion Gap 17 mmol/L; BUN/Creatinine Ratio 21.25; Blood Urea Nitrogen 17 mg/dL (7-17); Calcium 8.9 mg/dL (8.4-10.2); Carbon Dioxide 20 mmol/L (22-30); Chloride 104.7 mmol/L (98-107); Glucose 97 mg/dL (65-100); Potassium 3.7 mmol/L (3.6-5.0); Sodium 138 mmol/L (137-145)
--- NOTE | 2016-11-16 11:03 | Progress Note ---
Assessment and Plan Assessment: Atrial fibrillation with RVR - now with CVR; ? new onset; TSH WNL. HTN Hypokalemia - repleted. Leukocytosis / low-grade fever - CXR with NAF. Nonsyncopal falls Dementia Plan: Echo reviewed - 11/14/2016: mild LVH, EF 55-60%, abnormal diastolic function, mild aortic leaflet calcification, mild MR, mild TR. Cont Lopressor. Pt with current CHADS score of 3 and thus registered dental assistant rda anticoagulation in regards to atrial fibrillation is recommended. Indications, potential risks and benefits of fci anticoagulation reviewed with pt and pt's family at bedside and they decline long-term anticoagulation at this time in setting of pt 's frequent falls, advanced age, dementia, and history of medical noncompliance. Currently stable cardiac status. Will see PRN. Recommend pt to follow up in our office with Camryn Scott NP, within 1-2 weeks of hospital discharge ([phone]). Assessment and plan reviewed with pt and pt's family at bedside. The patient has been seen in conjunction with Dr. Dima Hyde who agrees with the assessment and plan of care. Subjective Date of service: 11/16/16 Principal diagnosis: AFib Interval history: Pt resting comfortably in bed, no complaints. In AFib with CVR, BPs stable. Family at bedside. Objective Last Vital Signs Temp 98.6 F 11/16/16 08:45 Pulse 66 11/16/16 08:45 Resp 16 11/16/16 08:45 BP 132/66 11/16/16 08:45 Pulse Ox 93 11/16/16 08:45 - Physical Examination General: No Apparent Distress HEENT: Positive: PERRL, Normocephaly, Mucus Membranes Moist Neck: Positive: neck supple, trachea midline Cardiac: Positive: irregularly irregular, S1/S2 Lungs: Positive: Decreased Breath Sounds Neuro: Positive: Grossly Intact, Cranial Nerve 2-12 Intact Abdomen: Positive: Unremarkable, Soft, Active Bowel Sounds. Negative: Tender Skin: Positive: Clear. Negative: Rash, Wound Musculoskeletal: No Fluid Collection, No Pain, Normal Range of Motion Extremities: Absent: edema - Labs and Meds CBC 11/16/16 Range/Units 05:25 WBC 7.8 (4.5-11.0) K/mm3 RBC 3.75 (3.65-5.03) M/mm3 Hgb 12.0 (10.1-14.3) gm/dl Hct 34.4 (30.3-42.9) % Plt Count 211 (140-440) K/mm3 Comprehensive Metabolic Panel 11/16/16 Range/Units 05:25 Sodium 138 (137-145) mmol/L Potassium 3.7 (3.6-5.0) mmol/L Chloride 104.7 (98-107) mmol/L Carbon Dioxide 20 L (22-30) mmol/L BUN 17 (7-17) mg/dL Creatinine 0.8 (0.7-1.2) mg/dL Glucose 97 (65-100) mg/dL Calcium 8.9 (8.4-10.2) mg/dL - Imaging and Cardiology EKG: image reviewed Echo: report reviewed (11/14/2016: mild LVH, EF 55-60%, abnormal diastolic function, mild aortic leaflet calcification, mild MR, mild TR. ) - Telemetry EKG Rhythm: Atrial Fibrillation
[2016-11-16] MEDS: LOPRESSOR PO SCH ×2 (11:14→21:06)
[2016-11-16] MEDS: BABY ASPIRIN PO SCH (11:14)
[2016-11-16] MEDS: TYLENOL PO PRN ×2 (11:15→21:06)
--- NOTE | 2016-11-16 13:59 | Progress Note ---
Assessment and Plan Assessment and plan: Patient is a 86 yo woman without past medical history because she hasn't seen a physician since 1978 per daughter, Zina, who presented to the ED with multiple falls at home. She was found to have A. fib with RVR, admitted to the ICU on Cardizem drip. For the last 7-8 months daughter, Zina, has noticed worsening of her mental capacity with waxing and waning memory loss, poor balance and multiple mechanical falls. Patient lives with her at home. CT read as no acute processes but advanced chronic microvascular ischemic changes. This most likely related to advanced dementia. Portable chest x-ray read as no acute processes. Transthoracic echocardiogram read as mild concentric left acute upper cheek, estimated EF 55-60%, abnormal left ventricular systolic function is observed, mild aortic leaflet calcification, mitral annular constipation, mild MR, mild TR, no pericardial effusion. -Atrial fibrillation with a rapid ventricular response: Consulted cardiology, rate control, on therapeutic Lovenox but her recurrent repeated falls excludes the use of anticoagulation and lack of safety -Hypokalemia: bmp am -Sepsis with UTI: get cultures, abx. 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 Cont Lopressor. Pt with current CHADS score of 3 and thus residential anticoagulation in regards to atrial fibrillation is recommended. Indications, potential risks and benefits of superintendent container terminal anticoagulation reviewed with pt and pt's family at bedside and they decline long-term anticoagulation at this time in setting of pt's frequent falls, advanced age, dementia, and history of medical noncompliance. Currently stable cardiac status. Will see PRN. Recommend pt to follow up in our office with Camryn Scott NP, within 1-2 weeks of hospital discharge ). Assessment and plan reviewed with pt and pt's family at bedside." History Interval history: Patient seen and examined. Follow up on current diagnosis/altered mental status improved. Overnight uneventful. No cp, sob, n/v or severe headaches. Imaging, old records, testing, labs, nursing notes reviewed. Hospitalist Physical - Physical exam Narrative exam: GEN: Chronic debilitated NAD, AWAKE, ALERT, confused HEENT: NCAT, PERRL, EOMI, OP CLEAR NECK: SUPPLE, NO THYROMEGALY, NO JVD, NO LAD CVS: irregular irregular, NORMAL S1S2 LUNGS/CHEST: CTA B, NORMAL CHEST EXPANSION B, GOOD AIR ENTRY B ABD: SOFT, NTND, GBS, NO REBOUND OR GUARDING EXT/SKIN: NO SIGNIFICANT EDEMA OR RASH MSK: FROM X 4 EXTREMITIES NEURO: CN 2-12 GROSSLY INTACT, NO FOCAL DEFICITS PSY: Agitated, spitting and using curse words - Constitutional Vitals: Temp Pulse Resp BP Pulse Ox 98.0 F 87 18 115/56 93 11/16/16 11:57 11/16/16 11:57 11/16/16 11:57 11/16/16 11:57 11/16/16 11:57 General appearance: Present: no acute distress Results - Labs CBC & Chem 7: 11/16/16 05:25 11/16/16 05:25 Labs: Laboratory Last Values WBC 7.8 K/mm3 (4.5-11.0) 11/16/16 05:25 RBC 3.75 M/mm3 (3.65-5.03) 11/16/16 05:25 Hgb 12.0 gm/dl (10.1-14.3) 11/16/16 05:25 Hct 34.4 % (30.3-42.9) 11/16/16 05:25 MCV 92 fl (79-97) 11/16/16 05:25 MCH 32 pg (28-32) 11/16/16 05:25 MCHC 35 % (30-34) H 11/16/16 05:25 RDW 13.7 % (13.2-15.2) 11/16/16 05:25 Plt Count 211 K/mm3 (140-440) 11/16/16 05:25 Lymph % (Auto) 19.0 % (13.4-35.0) 11/15/16 07:00 [place] % (Auto) 4.5 % (0.0-7.3) 11/15/16 07:00 Eos % (Auto) 0.7 % (0.0-4.3) 11/15/16 07:00 Baso % (Auto) 0.3 % (0.0-1.8) 11/15/16 07:00 Lymph # 1.9 K/mm3 (1.2-5.4) 11/15/16 07:00 [place] # 0.5 K/mm3 (0.0-0.8) 11/15/16 07:00 Eos # 0.1 K/mm3 (0.0-0.4) 11/15/16 07:00 Baso # 0.0 K/mm3 (0.0-0.1) 11/15/16 07:00 Seg Neutrophils % 75.5 % (40.0-70.0) H 11/15/16 07:00 Seg Neutrophils # 7.6 K/mm3 (1.8-7.7) 11/15/16 07:00 PT 14.7 Sec. (12.2-14.9) 11/13/16 21:14 INR 1.16 (0.87-1.13) H 11/13/16 21:14 APTT 28.1 Sec. (24.2-36.6) 11/13/16 21:14 Sodium 138 mmol/L (137-145) 11/16/16 05:25 Potassium 3.7 mmol/L (3.6-5.0) 11/16/16 05:25 Chloride 104.7 mmol/L (98-107) 11/16/16 05:25 Carbon Dioxide 20 mmol/L (22-30) L 11/16/16 05:25 Anion Gap 17 mmol/L 11/16/16 05:25 BUN 17 mg/dL (7-17) 11/16/16 05:25 Creatinine 0.8 mg/dL (0.7-1.2) 11/16/16 05:25 Estimated GFR > 60 ml/min 11/16/16 05:25 BUN/Creatinine Ratio 21.25 % 11/16/16 05:25 Glucose 97 mg/dL (65-100) 11/16/16 05:25 POC Glucose 143 (70-105) H 11/14/16 11:37 Calcium 8.9 mg/dL (8.4-10.2) 11/16/16 05:25 Phosphorus 2.20 mg/dL (2.5-4.5) L 11/14/16 08:36 Magnesium 1.90 mg/dL (1.7-2.3) 11/14/16 08:36 Total Bilirubin 1.10 mg/dL (0.1-1.2) 11/13/16 21:14 AST 14 units/L (5-40) 11/13/16 21:14 ALT 10 units/L (7-56) 11/13/16 21:14 Alkaline Phosphatase 73 units/L (35-129) 11/13/16 21:14 Total Creatine Kinase 1422 units/L (30-135) H 11/14/16 08:36 CK-MB (CK-2) 6.9 ng/mL (0.0-4.0) H 11/14/16 08:36 CK-MB (CK-2) Rel Index 0.4 (0-4) 11/14/16 08:36 Troponin T < 0.010 ng/mL (0.00-0.029) 11/14/16 08:36 Total Protein 6.8 g/dL (6.3-8.2) 11/13/16 21:14 Albumin 3.5 g/dL (3.9-5) L 11/13/16 21:14 Albumin/Globulin Ratio 1.1 % 11/13/16 21:14 TSH 3.120 mlU/mL (0.270-4.200) 11/13/16 21:14 Urine Color [place] (Yellow) 11/13/16 22:00 Urine Turbidity Slightly-cloudy (Clear) 11/13/16 22:00 Urine pH 5.0 (5.0-7.0) 11/13/16 22:00 Ur Specific [place] 1.025 (1.003-1.030) 11/13/16 22:00 Urine Protein 30 mg/dl mg/dL (Negative) 11/13/16 22:00 Urine Glucose (UA) 50 mg/dL (Negative) 11/13/16 22:00 Urine Ketones Tr mg/dL (Negative) 11/13/16 22:00 Urine Blood Sm (Negative) 11/13/16 22:00 Urine Nitrite Neg (Negative) 11/13/16 22:00 Urine Bilirubin Neg (Negative) 08/14/17 22:00 Urine Urobilinogen 4.0 mg/dL (<2.0) 11/13/16 22:00 Ur Leukocyte Esterase Tr (Negative) 11/13/16 22:00 Urine WBC (Auto) 8.0 /HPF (0.0-6.0) H 11/13/16 22:00 Urine RBC (Auto) 9.0 /HPF (0.0-6.0) 11/13/16 22:00 U Epithel Cells (Auto) 5.0 /HPF (0-13.0) 11/13/16 22:00 Hyaline Casts 17 /LPF 11/13/16 22:00 Urine Mucus 3+ /HPF 11/13/16 22:00
--- NOTE | 2016-11-16 15:25 | Consultation ---
History of Present Illness - Reason for Consult Consult date: 11/16/16 Reason for consult: Mental Health Evaluation Requesting physician: PABLO THRASHER - Chief Complaint Chief complaint: "I am okay" - History of Present Psychiatric Illness This is a 86-year-old female presents to the emergency department by EMS from home after EMS was called when the patient had a fall and the needed assistance. Psychiatry was consulted to see patient because of confusion. Today patient is calm and cooperative during the assessment. The patient was able to tell me her and recall 2/3 numbers (5, 10, 15), but could not ID the current [place] President. Per collateral information from her , niece, and daughter the patient have been forgetting where she put her belongings at home. Also, patient is experiencing insomnia and sleeping mostly during the day. They stated that her appetite has decreased over the past few months. The patient denies SI/HI's, AVH's, and depression. She denies recreational drug use. Per the family she haven't seen a doctor since 1978. Medications and Allergies Allergies Allergy/AdvReac Type Severity Reaction Status Date / Time No Known Allergies Allergy Verified 11/13/16 20:45 Home Medications Medication Instructions Recorded Confirmed Last Taken Type No Known Home Medications [No 11/13/16 11/13/16 Unknown History Reported Home Medications] Active Meds: Active Medications Acetaminophen (Tylenol) 650 mg PO Q4H PRN PRN Reason: Pain MILD(1-3)/Fever >100.5/CEE Last Admin: 11/16/16 11:15 Dose: 650 mg Aspirin (Baby Aspirin) 81 mg PO QDAY [facility] Last Admin: 11/16/16 11:14 Dose: 81 mg Bisacodyl (Dulcolax) 10 mg [place] QDAY PRN PRN Reason: Constipation unrelieved by MOM Haloperidol Lactate (Haldol) 5 mg IM Q6H PRN PRN Reason: Agitation Last Admin: 11/15/16 17:36 Dose: 5 mg Hydralazine HCl (Apresoline) 5 mg IV Q6H PRN PRN Reason: SBP > 160 MMHG Ceftriaxone Sodium (Rocephin/Ns 1 Gm/50 Ml) 1 gm in 50 mls @ 100 mls/hr IV Q24H ANDREZ PRN Reason: Protocol Last Admin: 11/15/16 17:37 Dose: 100 mls/hr Magnesium Hydroxide (Milk Of Magnesia) 30 ml PO Q4H PRN PRN Reason: Constipation Metoprolol Tartrate (Lopressor) 50 mg PO BID ANDREZ Last Admin: 11/16/16 11:14 Dose: 50 mg Multi-Ingred Cream/Lotion/Oil/Oint (Artificial Tears Ophth Oint) 1 applic OU PRN PRN PRN Reason: Dry Eye(s) Last Admin: 11/14/16 22:47 Dose: 1 applic Past psychiatric history - Past Medical History Past Medical History: hypertension Past Surgical History: Other (Hysterectomy ) - past Psychiatric treatment and history psychiatric treatment history: Denies a psy hx and fam psy hx. - Social History Social history: Mental Status Exam - Vital signs Last Vital Signs Temp 98.0 F 11/16/16 11:57 Pulse 111 H 11/16/16 12:03 Resp 18 11/16/16 12:03 BP 115/56 11/16/16 11:57 Pulse Ox 93 11/16/16 11:57 - Exam Narrative exam: ROS: (-) depression (-) psyhosis MSE: Appearance: calm, cooperative Behavior: regular eye contact Speech: regular rate and tone Mood: "I am okay" Affect: congruent to mood Thought Process: circumstantial Thought Content: denies SI/HI's and AVH's Motor Activity: lying in bed Cognition: A/Ox 2 Insight: limited Judgment: limited Results Result Diagrams: 11/16/16 05:25 11/16/16 05:25 Abnormal lab results 11/16/16 11/16/16 Range/Units 05:25 05:25 MCHC 35 H (30-34) % Carbon Dioxide 20 L (22-30) mmol/L All other labs normal. Assessment and Plan Assessment and plan: Impression: Today patient is calm and cooperative during the assessment. Medical: Sepsis with UTI, Acute Encephalopathy Recommendation/Plan: Start Remeron 15 mg PO HS for sleep consolidation/ stimulate appetite. Discussed appropriate sleep hygiene with patient and family members. Delirium precautions as follows: 1. Frequently reorient patient and involve him/her in their care (simple explanations of procedures, tests, medications). 2. Lights on and shades open during daytime hours. 3. Try to avoid unnecessary interruptions to sleep during nighttime hours. 4. Obtain glasses, hearing aids from home if patient uses these at baseline. 5. Avoid medications that may exacerbate delirium (especially narcotics, benzodiazepines, barbiturates, ambien, lunesta, and medications with excessive anticholinergic properties). 6. D/C Seroquel.
[2016-11-16] MEDS: ROCEPHIN/NS 1 GM/50 ML 1 GM/50 ML BAG IV SCH (17:24)
[2016-11-16] MEDS ORDERED: REMERON PO SCH (22:00)
[2016-11-17] MEDS: BABY ASPIRIN PO SCH (10:41)
[2016-11-17] MEDS: LOPRESSOR PO SCH ×2 (10:41→21:59)
--- NOTE | 2016-11-17 13:24 | Progress Note ---
Subjective - Reason for Consult Consult date: 11/17/16 Reason for consult: Psychiatry Follow-up - Chief Complaint Chief complaint: "Hello" This is a 86-year-old female presents to the emergency department by EMS from home after EMS was called when the patient experienced a fall. Today patient is calm and cooperative during the assessment. She stated that she got 1 or 2 hours of sleep last night. She did eat 50% of her breakfast, per my assessment. She was able to ID her family members in her room. She was not able to ID the current [place] President and could only recall 1/3 numbers (2,6,10) in 5 mins. Per collateral information from her daughter Ms Zina Sanchez, the patient was very agitated last night and did not sleep at all. She was frustrated that her mother had not slept and questioned the medication Remeron. She wanted to know about an official dx of Dementia for her mother. I explained that we ( psychiatry services) are managing the patient's agitation and this is our 2nd day seeing the patient after ordering the Remeron. I informed the assigned hospitalist the concerns of the family. Mental Status Exam - Vital signs Last Vital Signs Temp 98.0 F 11/17/16 12:00 Pulse 70 11/17/16 12:00 Resp 20 11/17/16 12:00 BP 194/75 11/17/16 12:00 Pulse Ox 93 11/17/16 12:00 - Exam Narrative exam: MSE: Appearance: calm, cooperative Behavior: regular eye contact Speech: regular rate and tone Mood: "well" Affect: labile Thought Process: circumstantial Thought Content: denies SI/HI's and AVH's Motor Activity: sitting up in bed Cognition: A/Ox 2 Insight: limited Judgment: limited Assessment and Plan Impression: Today patient is calm and cooperative during the assessment. 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 Patient not oversedated. Patient not in restraints. Medical: Sepsis with UTI, Acute Encephalopathy Recommendation/Plan: Modify Remeron to 7.5 mg PO HS for sleep consolidation/ stimulate appetite and continue Haldol 5 mg IV Q6hrs PRN for agitation. Discussed proper sleep hygiene with patient and family members. Patient is pending placement to nursing/rehab facility. Delirium precautions as follows: 1. Frequently reorient patient and involve him/her in their care (simple explanations of procedures, tests, medications). 2. Lights on and shades open during daytime hours. 3. Try to avoid unnecessary interruptions to sleep during nighttime hours. 4. Obtain glasses, hearing aids from home if patient uses these at baseline. 5. Avoid medications that may exacerbate delirium (especially narcotics, benzodiazepines, barbiturates, ambien, lunesta, and medications with excessive anticholinergic properties).
[2016-11-17 13:43] LABS: Phosphorous 2.8 mg/dL (2.5-4.5)
[2016-11-17] MEDS: ROCEPHIN/NS 1 GM/50 ML 1 GM/50 ML BAG IV SCH (18:14)
--- NOTE | 2016-11-17 19:25 | Progress Note ---
Assessment and Plan Assessment and plan: 86 yo woman without past medical history because she hasn't seen a physician since 1978 per daughter, Zina, who presented to the ED with multiple falls at home. Daughter noticed over the last few months progressive decline of her mental capacity, with waxing and waning memory loss, poor balance and multiple mechanical falls 1. A. fib with RVR TSH within normal limits Admitted to ICU initially and started on Cardizem drip, then switched to po metoprolol Now rate controlled on beta haley Not a candidate for anticoagulation due to age, comorbidities and frequent falls Cardiology following 2. Sepsis secondary to UTI Cultures obtained and started on antibiotics, IV fluids 3. Hypokalemia Replete and recheck 4. Metabolic encephalopathy most likely superimposed on dementia Treat underlying conditions Psychiatry consulted and medications have been adjusted; Seroquel discontinued and Remeron started TSH within normal limits Check B12 and RPR 5. DVT prophylaxis SCDs 6. Full code History Interval history: somnolent, but arousable; calm during my examination long discussion with daughter who was present at [facility] Hospitalist Physical - Constitutional Vitals: Temp Pulse Resp BP Pulse Ox 98.0 F 70 20 194/75 93 11/17/16 12:00 11/17/16 12:00 11/17/16 13:11 11/17/16 12:00 11/17/16 12:00 General appearance: Present: no acute distress, well-nourished - EENT Eyes: Present: PERRL, EOM intact. Absent: scleral icterus, conjunctival injection ENT: clear oral mucosa, poor dentition - Neck Neck: Present: supple. Absent: enlarged thyroid, masses or JVD - Respiratory Respiratory effort: normal Respiratory: bilateral: CTA, negative: rales, rhonchi, wheezing - Cardiovascular Rhythm: irregularly irregular Heart Sounds: Present: S1 & S2. Absent: systolic murmur - Extremities Extremities: no ischemia - Abdominal General gastrointestinal: soft, non-tender, non-distended, normal bowel sounds - Psychiatric Psychiatric: no intact judgment & insight, no memory intact, agitated (at times , restless especially at night) - Neurologic Neurologic: focal deficits, moves all extremities Results - Labs CBC & Chem 7: 11/19/16 13:06 11/19/16 13:06 Labs: Laboratory Last Values WBC 7.8 K/mm3 (4.5-11.0) 11/16/16 05:25 RBC 3.75 M/mm3 (3.65-5.03) 11/16/16 05:25 Hgb 12.0 gm/dl (10.1-14.3) 11/16/16 05:25 Hct 34.4 % (30.3-42.9) 11/16/16 05:25 MCV 92 fl (79-97) 11/16/16 05:25 MCH 32 pg (28-32) 11/16/16 05:25 MCHC 35 % (30-34) H 11/16/16 05:25 RDW 13.7 % (13.2-15.2) 11/16/16 05:25 Plt Count 211 K/mm3 (140-440) 11/16/16 05:25 Lymph % (Auto) 19.0 % (13.4-35.0) 11/15/16 07:00 [place] % (Auto) 4.5 % (0.0-7.3) 11/15/16 07:00 Eos % (Auto) 0.7 % (0.0-4.3) 11/15/16 07:00 Baso % (Auto) 0.3 % (0.0-1.8) 11/15/16 07:00 Lymph # 1.9 K/mm3 (1.2-5.4) 11/15/16 07:00 [place] # 0.5 K/mm3 (0.0-0.8) 11/15/16 07:00 Eos # 0.1 K/mm3 (0.0-0.4) 11/15/16 07:00 Baso # 0.0 K/mm3 (0.0-0.1) 11/15/16 07:00 Seg Neutrophils % 75.5 % (40.0-70.0) H 11/15/16 07:00 Seg Neutrophils # 7.6 K/mm3 (1.8-7.7) 11/15/16 07:00 PT 14.7 Sec. (12.2-14.9) 11/13/16 21:14 INR 1.16 (0.87-1.13) H 11/13/16 21:14 APTT 28.1 Sec. (24.2-36.6) 11/13/16 21:14 Sodium 138 mmol/L (137-145) 11/16/16 05:25 Potassium 3.7 mmol/L (3.6-5.0) 11/16/16 05:25 Chloride 104.7 mmol/L (98-107) 11/16/16 05:25 Carbon Dioxide 20 mmol/L (22-30) L 11/16/16 05:25 Anion Gap 17 mmol/L 11/16/16 05:25 BUN 17 mg/dL (7-17) 11/16/16 05:25 Creatinine 0.8 mg/dL (0.7-1.2) 11/16/16 05:25 Estimated GFR > 60 ml/min 11/16/16 05:25 BUN/Creatinine Ratio 21.25 % 11/16/16 05:25 Glucose 97 mg/dL (65-100) 11/16/16 05:25 POC Glucose 121 (70-105) H 11/17/16 11:45 Hemoglobin A1c 5.6 % (4-6) 11/17/16 13:10 Calcium 8.9 mg/dL (8.4-10.2) 11/16/16 05:25 Phosphorus 2.80 mg/dL (2.5-4.5) 11/17/16 13:10 Magnesium 2.00 mg/dL (1.7-2.3) 11/17/16 13:10 Total Bilirubin 1.10 mg/dL (0.1-1.2) 11/13/16 21:14 AST 14 units/L (5-40) 11/13/16 21:14 ALT 10 units/L (7-56) 11/13/16 21:14 Alkaline Phosphatase 73 units/L (35-129) 11/13/16 21:14 Total Creatine Kinase 109 units/L (30-135) 11/17/16 13:10 CK-MB (CK-2) 6.9 ng/mL (0.0-4.0) H 11/14/16 08:36 CK-MB (CK-2) Rel Index 0.4 (0-4) 11/14/16 08:36 Troponin T < 0.010 ng/mL (0.00-0.029) 11/14/16 08:36 Total Protein 6.8 g/dL (6.3-8.2) 11/13/16 21:14 Albumin 3.5 g/dL (3.9-5) L 11/13/16 21:14 Albumin/Globulin Ratio 1.1 % 11/13/16 21:14 Vitamin B12 100.6 pg/mL (211-911) L 11/17/16 13:05 TSH 3.120 mlU/mL (0.270-4.200) 11/13/16 21:14 Urine Color [place] (Yellow) 11/13/16 22:00 Urine Turbidity Slightly-cloudy (Clear) 11/13/16 22:00 Urine pH 5.0 (5.0-7.0) 11/13/16 22:00 Ur Specific [place] 1.025 (1.003-1.030) 11/13/16 22:00 Urine Protein 30 mg/dl mg/dL (Negative) 11/13/16 22:00 Urine Glucose (UA) 50 mg/dL (Negative) 11/13/16 22:00 Urine Ketones Tr mg/dL (Negative) 11/13/16 22:00 Urine Blood Sm (Negative) 11/13/16 22:00 Urine Nitrite Neg (Negative) 11/13/16 22:00 Urine Bilirubin Neg (Negative) 11/13/16 22:00 Urine Urobilinogen 4.0 mg/dL (<2.0) 11/13/16 22:00 Ur Leukocyte Esterase Tr (Negative) 11/13/16 22:00 Urine WBC (Auto) 8.0 /HPF (0.0-6.0) H 11/13/16 22:00 Urine RBC (Auto) 9.0 /HPF (0.0-6.0) 11/13/16 22:00 U Epithel Cells (Auto) 5.0 /HPF (0-13.0) 11/13/16 22:00 Hyaline Casts 17 /LPF 11/13/16 22:00 Urine Mucus 3+ /HPF 11/13/16 22:00
[2016-11-17] MEDS: REMERON PO SCH (21:59)
[2016-11-18] MEDS: LOPRESSOR PO SCH ×2 (10:37→21:45)
[2016-11-18] MEDS: BABY ASPIRIN PO SCH (10:38)
[2016-11-18] MEDS ORDERED: VITAMIN B-12 IM ONE (12:02)
[2016-11-18] MEDS: ROCEPHIN/NS 1 GM/50 ML 1 GM/50 ML BAG IV SCH (18:18)
--- NOTE | 2016-11-18 20:45 | Progress Note ---
Assessment and Plan Assessment and plan: 86 yo woman without past medical history because she hasn't seen a physician since 1978 per daughter, Zina, who presented to the ED with multiple falls at home. Daughter noticed over the last few months progressive decline of her mental capacity, with waxing and waning memory loss, poor balance and multiple mechanical falls 1. A. fib with RVR TSH within normal limits Admitted to ICU initially and started on Cardizem drip, then switched to po metoprolol Now rate controlled on beta haley Not a candidate for anticoagulation due to age, comorbidities and frequent falls Cardiology following 2. Sepsis secondary to UTI Continue antibiotics 3. Hypokalemia Repleted 4. Metabolic encephalopathy most likely superimposed on dementia Treat underlying conditions TSH within normal limits B12 low, so will start B12 IM, followed by po Psychiatry consulted and medications have been adjusted; Seroquel discontinued and Remeron started; dose decreased due to increased somnolence 5. DVT prophylaxis SCDs 6. Full code History Interval history: Received overnight, lethargic/somnolence this morning Hospitalist Physical - Constitutional Vitals: Temp Pulse Resp BP Pulse Ox 97.8 F 63 18 156/70 92 11/18/16 19:47 11/18/16 19:47 11/18/16 19:47 11/18/16 19:47 11/18/16 19:47 General appearance: Present: no acute distress, well-nourished - EENT Eyes: Present: PERRL, EOM intact - Neck Neck: Present: normal ROM. Absent: enlarged thyroid, masses or JVD - Respiratory Respiratory effort: normal Respiratory: bilateral: CTA, negative: rales, rhonchi, wheezing - Cardiovascular Rhythm: irregularly irregular Heart Sounds: Present: S1 & S2. Absent: systolic murmur - Extremities Extremities: no ischemia - Abdominal General gastrointestinal: soft, non-tender, non-distended, normal bowel sounds - Psychiatric Psychiatric: no intact judgment & insight, no memory intact, agitated, other ( restless) - Neurologic Neurologic: moves all extremities Results - Labs CBC & Chem 7: 11/19/16 13:06 11/19/16 13:06 Labs: Laboratory Last Values WBC 7.8 K/mm3 (4.5-11.0) 11/16/16 05:25 RBC 3.75 M/mm3 (3.65-5.03) 11/16/16 05:25 Hgb 12.0 gm/dl (10.1-14.3) 11/16/16 05:25 Hct 34.4 % (30.3-42.9) 11/16/16 05:25 MCV 92 fl (79-97) 11/16/16 05:25 MCH 32 pg (28-32) 11/16/16 05:25 MCHC 35 % (30-34) H 11/16/16 05:25 RDW 13.7 % (13.2-15.2) 11/16/16 05:25 Plt Count 211 K/mm3 (140-440) 11/16/16 05:25 Lymph % (Auto) 19.0 % (13.4-35.0) 11/15/16 07:00 [place] % (Auto) 4.5 % (0.0-7.3) 11/15/16 07:00 Eos % (Auto) 0.7 % (0.0-4.3) 11/15/16 07:00 Baso % (Auto) 0.3 % (0.0-1.8) 11/15/16 07:00 Lymph # 1.9 K/mm3 (1.2-5.4) 11/15/16 07:00 [place] # 0.5 K/mm3 (0.0-0.8) 11/15/16 07:00 Eos # 0.1 K/mm3 (0.0-0.4) 11/15/16 07:00 Baso # 0.0 K/mm3 (0.0-0.1) 11/15/16 07:00 Seg Neutrophils % 75.5 % (40.0-70.0) H 11/15/16 07:00 Seg Neutrophils # 7.6 K/mm3 (1.8-7.7) 11/15/16 07:00 PT 14.7 Sec. (12.2-14.9) 11/13/16 21:14 INR 1.16 (0.87-1.13) H 11/13/16 21:14 APTT 28.1 Sec. (24.2-36.6) 11/13/16 21:14 Sodium 138 mmol/L (137-145) 11/16/16 05:25 Potassium 3.7 mmol/L (3.6-5.0) 11/16/16 05:25 Chloride 104.7 mmol/L (98-107) 11/16/16 05:25 Carbon Dioxide 20 mmol/L (22-30) L 11/16/16 05:25 Anion Gap 17 mmol/L 11/16/16 05:25 BUN 17 mg/dL (7-17) 11/16/16 05:25 Creatinine 0.8 mg/dL (0.7-1.2) 11/16/16 05:25 Estimated GFR > 60 ml/min 11/16/16 05:25 BUN/Creatinine Ratio 21.25 % 11/16/16 05:25 Glucose 97 mg/dL (65-100) 11/16/16 05:25 POC Glucose 121 (70-105) H 11/17/16 11:45 Hemoglobin A1c 5.6 % (4-6) 11/17/16 13:10 Calcium 8.9 mg/dL (8.4-10.2) 11/16/16 05:25 Phosphorus 2.80 mg/dL (2.5-4.5) 11/17/16 13:10 Magnesium 2.00 mg/dL (1.7-2.3) 11/17/16 13:10 Total Bilirubin 1.10 mg/dL (0.1-1.2) 11/13/16 21:14 AST 14 units/L (5-40) 11/13/16 21:14 ALT 10 units/L (7-56) 11/13/16 21:14 Alkaline Phosphatase 73 units/L (35-129) 11/13/16 21:14 Total Creatine Kinase 109 units/L (30-135) 11/17/16 13:10 CK-MB (CK-2) 6.9 ng/mL (0.0-4.0) H 11/14/16 08:36 CK-MB (CK-2) Rel Index 0.4 (0-4) 11/14/16 08:36 Troponin T < 0.010 ng/mL (0.00-0.029) 11/14/16 08:36 Total Protein 6.8 g/dL (6.3-8.2) 11/13/16 21:14 Albumin 3.5 g/dL (3.9-5) L 11/13/16 21:14 Albumin/Globulin Ratio 1.1 % 11/13/16 21:14 Vitamin B12 100.6 pg/mL (211-911) L 11/17/16 13:05 TSH 3.120 mlU/mL (0.270-4.200) 11/13/16 21:14 Urine Color [place] (Yellow) 11/13/16 22:00 Urine Turbidity Slightly-cloudy (Clear) 11/13/16 22:00 Urine pH 5.0 (5.0-7.0) 11/13/16 22:00 Ur Specific [place] 1.025 (1.003-1.030) 11/13/16 22:00 Urine Protein 30 mg/dl mg/dL (Negative) 11/13/16 22:00 Urine Glucose (UA) 50 mg/dL (Negative) 11/13/16 22:00 Urine Ketones Tr mg/dL (Negative) 11/13/16 22:00 Urine Blood Sm (Negative) 11/13/16 22:00 Urine Nitrite Neg (Negative) 11/13/16 22:00 Urine Bilirubin Neg (Negative) 11/13/16 22:00 Urine Urobilinogen 4.0 mg/dL (<2.0) 11/13/16 22:00 Ur Leukocyte Esterase Tr (Negative) 11/13/16 22:00 Urine WBC (Auto) 8.0 /HPF (0.0-6.0) H 11/13/16 22:00 Urine RBC (Auto) 9.0 /HPF (0.0-6.0) 11/13/16 22:00 U Epithel Cells (Auto) 5.0 /HPF (0-13.0) 11/13/16 22:00 Hyaline Casts 17 /LPF 11/13/16 22:00 Urine Mucus 3+ /HPF 11/13/16 22:00 RPR Nonreactive (Nonreactive) 11/17/16 13:10
[2016-11-18] MEDS: REMERON PO SCH (21:45)
[2016-11-18] MEDS: HALDOL IM PRN (23:13)
[2016-11-19 13:29] LABS: Basophils % (Auto) 0.5 % (0.0-1.8); Eosinophils % (Auto) 0.3 % (0.0-4.3); Hematocrit 39.7 % (30.3-42.9); Hemoglobin 13.4 gm/dl (10.1-14.3); Mean Corpuscular HGB Conc 34 % (30-34); Mean Corpuscular Hemoglobin 32 pg (28-32); Mean Corpuscular Volume 93 fl (79-97); Platelet Count 252 K/mm3 (140-440); Red Blood Count 4.26 M/mm3 (3.65-5.03); Red Cell Distribution Width 13.5 % (13.2-15.2); White Blood Count 10.4 K/mm3 (4.5-11.0)
--- NOTE | 2016-11-19 13:37 | XRay Report ---
AP CHEST: HISTORY: Fever Compared to 11/13/16. There is poor inspiration. Hazy opacity is identified at the left lung base which is most consistent with atelectasis. Otherwise, the lungs are clear. Heart size and pulmonary vascularity are borderline and unchanged. Moderate hiatal hernia is suspected. IMPRESSION: No acute cardiopulmonary process is appreciated.
[2016-11-19 13:44] LABS: BUN/Creatinine Ratio 18.88; Calcium 9.4 mg/dL (8.4-10.2); Chloride 100.9 mmol/L (98-107); Potassium 4.5 mmol/L (3.6-5.0)
[2016-11-19] MEDS: VITAMIN B-12 PO SCH (14:14)
[2016-11-19] MEDS: BABY ASPIRIN PO SCH (14:16)
[2016-11-19] MEDS: LOPRESSOR PO SCH ×2 (14:17→23:12)
[2016-11-19] MEDS: ROCEPHIN/NS 1 GM/50 ML 1 GM/50 ML BAG IV SCH (18:12)
[2016-11-19] MEDS ORDERED: VITAMIN B-12 IM ONE (19:52)
--- NOTE | 2016-11-19 20:02 | Progress Note ---
Assessment and Plan Assessment and plan: 86 yo woman without past medical history because she hasn't seen a physician since 1978 per daughter, Zina, who presented to the ED with multiple falls at home. Daughter noticed over the last few months progressive decline of her mental capacity, with waxing and waning memory loss, poor balance and multiple mechanical falls 1. A. fib with RVR TSH within normal limits Admitted to ICU initially and started on Cardizem drip, then switched to po metoprolol Now rate controlled on beta haley Not a candidate for anticoagulation due to age, comorbidities and frequent falls Cardiology following 2. Sepsis secondary to UTI Continue antibiotics Fever today - obtain CBC, BMP, repeat UA, check lactic acid 3. Hypokalemia Repleted 4. Metabolic encephalopathy most likely superimposed on dementia CT head with no acute abnormalities, but severe microvascular changes and atrophy Treat underlying conditions TSH within normal limits B12 low, so will start B12 IM, followed by po Psychiatry consulted and medications have been adjusted; Seroquel discontinued and Remeron started; dose decreased due to increased somnolence 5. DVT prophylaxis SCDs 6. Full code 7. Most likely will need placement History Interval history: Awake, agitated, restless during the night, somnolent in the morning; spiked fever Rediscussed with daughter at length Hospitalist Physical - Constitutional Vitals: Temp Pulse Resp BP Pulse Ox 98.9 F 65 20 144/67 90 11/19/16 18:39 11/19/16 18:39 11/19/16 18:39 11/19/16 18:39 11/19/16 18:39 General appearance: Present: no acute distress, well-nourished - EENT Eyes: Present: PERRL, EOM intact - Neck Neck: Present: supple. Absent: enlarged thyroid, masses or JVD - Respiratory Respiratory effort: normal Respiratory: bilateral: CTA, negative: rhonchi, wheezing - Cardiovascular Rhythm: regular Heart Sounds: Present: S1 & S2. Absent: systolic murmur - Extremities Extremities: no ischemia - Abdominal General gastrointestinal: soft, non-tender, non-distended, normal bowel sounds - Integumentary Integumentary: Present: warm, dry. Absent: jaundice, rash - Psychiatric Psychiatric: no intact judgment & insight, no memory intact, agitated, other ( restless) - Neurologic Neurologic: moves all extremities Results - Labs CBC & Chem 7: 11/19/16 13:06 11/19/16 13:06 Labs: Laboratory Last Values WBC 10.4 K/mm3 (4.5-11.0) 11/19/16 13:06 RBC 4.26 M/mm3 (3.65-5.03) 11/19/16 13:06 Hgb 13.4 gm/dl (10.1-14.3) 11/19/16 13:06 Hct 39.7 % (30.3-42.9) 11/19/16 13:06 MCV 93 fl (79-97) 11/19/16 13:06 MCH 32 pg (28-32) 11/19/16 13:06 MCHC 34 % (30-34) 11/19/16 13:06 RDW 13.5 % (13.2-15.2) 11/19/16 13:06 Plt Count 252 K/mm3 (140-440) 11/19/16 13:06 Lymph % (Auto) 11.0 % (13.4-35.0) L 11/19/16 13:06 [place] % (Auto) 6.6 % (0.0-7.3) 11/19/16 13:06 Eos % (Auto) 0.3 % (0.0-4.3) 11/19/16 13:06 Baso % (Auto) 0.5 % (0.0-1.8) 11/19/16 13:06 Lymph # 1.1 K/mm3 (1.2-5.4) L 11/19/16 13:06 [place] # 0.7 K/mm3 (0.0-0.8) 11/19/16 13:06 Eos # 0.0 K/mm3 (0.0-0.4) 11/19/16 13:06 Baso # 0.1 K/mm3 (0.0-0.1) 11/19/16 13:06 Seg Neutrophils % 81.6 % (40.0-70.0) H 11/19/16 13:06 Seg Neutrophils # 8.5 K/mm3 (1.8-7.7) H 11/19/16 13:06 PT 14.7 Sec. (12.2-14.9) 11/13/16 21:14 INR 1.16 (0.87-1.13) H 11/13/16 21:14 APTT 28.1 Sec. (24.2-36.6) 11/13/16 21:14 Sodium 137 mmol/L (137-145) 11/19/16 13:06 Potassium 4.5 mmol/L (3.6-5.0) D 11/19/16 13:06 Chloride 100.9 mmol/L (98-107) 11/19/16 13:06 Carbon Dioxide 20 mmol/L (22-30) L 11/19/16 13:06 Anion Gap 21 mmol/L 11/19/16 13:06 BUN 17 mg/dL (7-17) 11/19/16 13:06 Creatinine 0.9 mg/dL (0.7-1.2) 11/19/16 13:06 Estimated GFR 60 ml/min 11/19/16 13:06 BUN/Creatinine Ratio 18.88 % 11/19/16 13:06 Glucose 142 mg/dL (65-100) H 11/19/16 13:06 POC Glucose 121 (70-105) H 11/17/16 11:45 Hemoglobin A1c 5.6 % (4-6) 11/17/16 13:10 Lactic Acid 2.50 mmol/L (0.7-2.0) H* 11/19/16 13:06 Calcium 9.4 mg/dL (8.4-10.2) 11/19/16 13:06 Phosphorus 2.80 mg/dL (2.5-4.5) 11/17/16 13:10 Magnesium 2.00 mg/dL (1.7-2.3) 11/17/16 13:10 Total Bilirubin 1.10 mg/dL (0.1-1.2) 11/13/16 21:14 AST 14 units/L (5-40) 11/13/16 21:14 ALT 10 units/L (7-56) 11/13/16 21:14 Alkaline Phosphatase 73 units/L (35-129) 11/13/16 21:14 Total Creatine Kinase 109 units/L (30-135) 11/17/16 13:10 CK-MB (CK-2) 6.9 ng/mL (0.0-4.0) H 11/14/16 08:36 CK-MB (CK-2) Rel Index 0.4 (0-4) 11/14/16 08:36 Troponin T < 0.010 ng/mL (0.00-0.029) 11/14/16 08:36 Total Protein 6.8 g/dL (6.3-8.2) 11/13/16 21:14 Albumin 3.5 g/dL (3.9-5) L 11/13/16 21:14 Albumin/Globulin Ratio 1.1 % 11/13/16 21:14 Vitamin B12 100.6 pg/mL (211-911) L 11/17/16 13:05 TSH 3.120 mlU/mL (0.270-4.200) 11/13/16 21:14 Urine Color [place] (Yellow) 11/13/16 22:00 Urine Turbidity Slightly-cloudy (Clear) 11/13/16 22:00 Urine pH 5.0 (5.0-7.0) 11/13/16 22:00 Ur Specific [place] 1.025 (1.003-1.030) 11/13/16 22:00 Urine Protein 30 mg/dl mg/dL (Negative) 11/13/16 22:00 Urine Glucose (UA) 50 mg/dL (Negative) 11/13/16 22:00 Urine Ketones Tr mg/dL (Negative) 11/13/16 22:00 Urine Blood Sm (Negative) 11/13/16 22:00 Urine Nitrite Neg (Negative) 11/13/16 22:00 Urine Bilirubin Neg (Negative) 11/13/16 22:00 Urine Urobilinogen 4.0 mg/dL (<2.0) 11/13/16 22:00 Ur Leukocyte Esterase Tr (Negative) 11/13/16 22:00 Urine WBC (Auto) 8.0 /HPF (0.0-6.0) H 11/13/16 22:00 Urine RBC (Auto) 9.0 /HPF (0.0-6.0) 11/13/16 22:00 U Epithel Cells (Auto) 5.0 /HPF (0-13.0) 11/13/16 22:00 Hyaline Casts 17 /LPF 11/13/16 22:00 Urine Mucus 3+ /HPF 11/13/16 22:00 RPR Nonreactive (Nonreactive) 11/17/16 13:10
[2016-11-19] MEDS: NACL 0.9% 1000 ML 1,000 ML IV SCH (23:12)
[2016-11-19] MEDS: REMERON PO SCH (23:14)
[2016-11-20 08:18] LABS: Blood Urea Nitrogen 18 mg/dL (7-17); Calcium 9.1 mg/dL (8.4-10.2); Carbon Dioxide 23 mmol/L (22-30); Glucose 97 mg/dL (65-100)
[2016-11-20 08:19] LABS: Anion Gap 16 mmol/L; Potassium 3.9 mmol/L (3.6-5.0); Sodium 137 mmol/L (137-145)
--- NOTE | 2016-11-20 11:05 | Progress Note ---
Assessment and Plan Assessment and plan: 86 yo woman without past medical history because she hasn't seen a physician since 1978 per daughter, Zina, who presented to the ED with multiple falls at home. Daughter noticed over the last few months progressive decline of her mental capacity, with waxing and waning memory loss, poor balance and multiple mechanical falls 1. A. fib with RVR TSH within normal limits Admitted to ICU initially and started on Cardizem drip, then switched to po metoprolol Now rate controlled on beta haley Not a candidate for anticoagulation due to age, comorbidities and frequent falls Cardiology following 2. Sepsis secondary to UTI Continue antibiotics Fever today - obtain CBC, BMP, repeat UA, check lactic acid 3. Hypokalemia, now resolved. 4. Toxic Metabolic encephalopathy CT head with no acute abnormalities, but severe microvascular changes and atrophy Treat underlying conditions TSH within normal limits B12 low, so will start B12 IM, followed by po Psychiatry consulted and medications have been adjusted; Seroquel discontinued and Remeron started; dose decreased due to increased somnolence 5. DVT prophylaxis-SCDs 6. Full code 7. Disposition. I discussed with case management. Looking for placement. I also discussed plan with daughter at bedside History Interval history: Patient with atrial fibrillation, Gen weakness Hospitalist Physical - Physical exam Narrative exam: Gen appearance: Not in acute distress HEENT: normocephalic, atraumatic Neck: supple, no JVD, CHANTAL Lungs: Clear to auscultation bilaterally, no crackles or wheezes Heart :S1 and S2 regular, no murmurs, rubs or gallop Abdomen: Soft, Non tender, non distended, bowel sounds present Extremities :no edema, no clubbing or cyanosis Neuro: Awake, non verbal, dementia - Constitutional Vitals: Temp Pulse Resp BP Pulse Ox 97.8 F 57 L 18 122/53 92 11/20/16 09:25 11/20/16 09:25 11/20/16 09:25 11/20/16 09:25 11/20/16 09:25 General appearance: Present: no acute distress, well-nourished Results - Labs CBC & Chem 7: 11/19/16 13:06 11/20/16 07:34 Labs: Laboratory Last Values WBC 10.4 K/mm3 (4.5-11.0) 11/19/16 13:06 RBC 4.26 M/mm3 (3.65-5.03) 11/19/16 13:06 Hgb 13.4 gm/dl (10.1-14.3) 11/19/16 13:06 Hct 39.7 % (30.3-42.9) 11/19/16 13:06 MCV 93 fl (79-97) 11/19/16 13:06 MCH 32 pg (28-32) 11/19/16 13:06 MCHC 34 % (30-34) 11/19/16 13:06 RDW 13.5 % (13.2-15.2) 11/19/16 13:06 Plt Count 252 K/mm3 (140-440) 11/19/16 13:06 Lymph % (Auto) 11.0 % (13.4-35.0) L 11/19/16 13:06 Gordon % (Auto) 6.6 % (0.0-7.3) 11/19/16 13:06 Eos % (Auto) 0.3 % (0.0-4.3) 11/19/16 13:06 Baso % (Auto) 0.5 % (0.0-1.8) 11/19/16 13:06 Lymph # 1.1 K/mm3 (1.2-5.4) L 11/19/16 13:06 Gordon # 0.7 K/mm3 (0.0-0.8) 11/19/16 13:06 Eos # 0.0 K/mm3 (0.0-0.4) 11/19/16 13:06 Baso # 0.1 K/mm3 (0.0-0.1) 11/19/16 13:06 Seg Neutrophils % 81.6 % (40.0-70.0) H 11/19/16 13:06 Seg Neutrophils # 8.5 K/mm3 (1.8-7.7) H 11/19/16 13:06 PT 14.7 Sec. (12.2-14.9) 11/13/16 21:14 INR 1.16 (0.87-1.13) H 11/13/16 21:14 APTT 28.1 Sec. (24.2-36.6) 11/13/16 21:14 Sodium 137 mmol/L (137-145) 11/20/16 07:34 Potassium 3.9 mmol/L (3.6-5.0) 11/20/16 07:34 Chloride 102.0 mmol/L (98-107) 11/20/16 07:34 Carbon Dioxide 23 mmol/L (22-30) 11/20/16 07:34 Anion Gap 16 mmol/L 11/20/16 07:34 BUN 18 mg/dL (7-17) H 11/20/16 07:34 Creatinine 0.8 mg/dL (0.7-1.2) 11/20/16 07:34 Estimated GFR > 60 ml/min 11/20/16 07:34 BUN/Creatinine Ratio 22.50 % 11/20/16 07:34 Glucose 97 mg/dL (65-100) 11/20/16 07:34 POC Glucose 121 (70-105) H 11/17/16 11:45 Hemoglobin A1c 5.6 % (4-6) 11/17/16 13:10 Lactic Acid 1.00 mmol/L (0.7-2.0) 11/20/16 07:34 Calcium 9.1 mg/dL (8.4-10.2) 11/20/16 07:34 Phosphorus 2.80 mg/dL (2.5-4.5) 11/17/16 13:10 Magnesium 2.00 mg/dL (1.7-2.3) 11/17/16 13:10 Total Bilirubin 1.10 mg/dL (0.1-1.2) 11/13/16 21:14 AST 14 units/L (5-40) 11/13/16 21:14 ALT 10 units/L (7-56) 11/13/16 21:14 Alkaline Phosphatase 73 units/L (35-129) 11/13/16 21:14 Total Creatine Kinase 109 units/L (30-135) 11/17/16 13:10 CK-MB (CK-2) 6.9 ng/mL (0.0-4.0) H 11/14/16 08:36 CK-MB (CK-2) Rel Index 0.4 (0-4) 11/14/16 08:36 Troponin T < 0.010 ng/mL (0.00-0.029) 11/14/16 08:36 Total Protein 6.8 g/dL (6.3-8.2) 11/13/16 21:14 Albumin 3.5 g/dL (3.9-5) L 11/13/16 21:14 Albumin/Globulin Ratio 1.1 % 11/13/16 21:14 Vitamin B12 100.6 pg/mL (211-911) L 11/17/16 13:05 TSH 3.120 mlU/mL (0.270-4.200) 11/13/16 21:14 Urine Color Fernanda (Yellow) 11/13/16 22:00 Urine Turbidity Slightly-cloudy (Clear) 11/13/16 22:00 Urine pH 5.0 (5.0-7.0) 11/13/16 22:00 Ur Specific [place] 1.025 (1.003-1.030) 11/13/16 22:00 Urine Protein 30 mg/dl mg/dL (Negative) 11/13/16 22:00 Urine Glucose (UA) 50 mg/dL (Negative) 11/13/16 22:00 Urine Ketones Tr mg/dL (Negative) 11/13/16 22:00 Urine Blood Sm (Negative) 11/13/16 22:00 Urine Nitrite Neg (Negative) 11/13/16 22:00 Urine Bilirubin Neg (Negative) 11/13/16 22:00 Urine Urobilinogen 4.0 mg/dL (<2.0) 11/13/16 22:00 Ur Leukocyte Esterase Tr (Negative) 11/13/16 22:00 Urine WBC (Auto) 8.0 /HPF (0.0-6.0) H 11/13/16 22:00 Urine RBC (Auto) 9.0 /HPF (0.0-6.0) 11/13/16 22:00 U Epithel Cells (Auto) 5.0 /HPF (0-13.0) 11/13/16 22:00 Hyaline Casts 17 /LPF 11/13/16 22:00 Urine Mucus 3+ /HPF 11/13/16 22:00 RPR Nonreactive (Nonreactive) 11/17/16 13:10
[2016-11-20] MEDS: VITAMIN B-12 PO SCH (11:37)
[2016-11-20] MEDS: LOPRESSOR PO SCH ×2 (11:38→22:23)
[2016-11-20] MEDS: BABY ASPIRIN PO SCH (11:40)
[2016-11-20 15:01] LABS: Bacteria,Urine 1+ /HPF (Negative); Bilirubin,Urine NEG (Negative); Blood,Urine SM (Negative); Ketones,Urine NEG (Negative); Leukocyte Esterase,Urine SM (Negative); Mucus,Urine FEW /HPF; Nitrite,Urine NEG (Negative); Protein,Urine <15 mg/dL mg/dL (Negative)
--- NOTE | 2016-11-20 15:51 | Progress Note ---
Subjective - Reason for Consult Consult date: 11/20/16 Reason for consult: Psychiatry Follow-up - Chief Complaint Chief complaint: "How are you" This is a 86-year-old female presents to the emergency department by EMS from home after EMS was called when the patient experienced a fall. Today patient is calm and cooperative during the assessment. Per family member, patient slept better last night (collateral information from the warehouse worker 2nd shift RN ) and eating all her meals. The patient was able to tell me her and her current location. She denies SI/HI's, AVH's, and depression. Remeron was held last night because of increased somnolence. The last prn medication (Haldol) was given 2 days ago for agitation. Mental Status Exam - Vital signs Last Vital Signs Temp 98.5 F 11/20/16 13:13 Pulse 58 L 11/20/16 13:13 Resp 18 11/20/16 13:13 BP 148/68 11/20/16 13:13 Pulse Ox 97 11/20/16 13:13 - Exam Narrative exam: MSE: Appearance: calm, cooperative Behavior: regular eye contact Speech: regular rate and tone Mood: "okay" Affect: congruent to mood Thought Process: circumstantial Thought Content: denies SI/HI's and AVH's Motor Activity: sitting up in bed Cognition: A/Ox 3 Insight: limited Judgment: limited Assessment and Plan Impression: Today patient is calm and cooperative during the assessment. 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 Patient not in restraints. Medical: Sepsis with UTI, Acute Encephalopathy Recommendation/Plan: D/C Remeron. Continue Haldol 5 mg IV Q6hrs PRN for agitation. Discussed proper sleep hygiene with patient and family members. Patient is pending placement to nursing/rehab facility. Reassess patient's sleep in the AM (start/maintain). Delirium precautions as follows: 1. Frequently reorient patient and involve him/her in their care (simple explanations of procedures, tests, medications). 2. Lights on and shades open during daytime hours. 3. Try to avoid unnecessary interruptions to sleep during nighttime hours. 4. Obtain glasses, hearing aids from home if patient uses these at baseline. 5. Avoid medications that may exacerbate delirium (especially narcotics, benzodiazepines, barbiturates, ambien, lunesta, and medications with excessive anticholinergic properties).
[2016-11-20] MEDS: ROCEPHIN/NS 1 GM/50 ML 1 GM/50 ML BAG IV SCH (19:02)
[2016-11-21] MEDS: NACL 0.9% 1000 ML 1,000 ML IV SCH (05:12)
--- NOTE | 2016-11-21 10:58 | Discharge Summary ---
Providers - Providers Date of Admission: 11/14/16 02:10 Date of discharge: 11/21/16 Attending physician: ANIKET JAUREGUI 11/15/16 09:46 Physical Therapy Evaluation and Treat [CONS] Routine Comment: Reason For Exam: Sub-acute placement 11/15/16 09:48 Occupational Therapy Evaluate and Treat [CONS] Routine Comment: Reason For Exam: Sub-acute rehab placement 11/15/16 17:41 Consult to Mental Health [CONS] Routine Reason For Exam: agitation Place consult to:: Dr. Roberson Notified:: psych Was contact made?: Yes Time called:: 17:57 Primary care physician: MAY SCHNEIDER Hospitalization Condition: Fair Hospital course: Patient is 86 yo presented with falls. Found to have atrial fibrillation with rapid ventricular response. She was started on cardizem drip in Emergency Department and admitted. Cardiology was consulted and she was evaluated. Her rate improved so was switched to oral Cardizem. She was also diagnosed with sepsis due to UTI, present on admission and was started on Rocephin. She improved slowly. Antii-coagulation was recommended for atrial fibrillation but family declined because of history of falls. Patient and family requested SNF placement, so she was evaentually discharged to SNF on 11/21/16. Total time spent on discharge,36 mins Disposition: [id number]/TX-[id number] SNF W [facility] CERT - Discharge Diagnoses (1) Atrial fibrillation with RVR Status: Acute (2) Sepsis Status: Acute Qualifiers: Sepsis type: S (3) UTI (urinary tract infection) Status: Acute Qualifiers: Urinary tract infection type: U Hematuria presence: H Indwelling urinary catheter type: I Encounter type: E (4) History of recent fall Status: Acute (5) Hypokalemia Status: Acute (6) Hypokalemia Status: Acute (7) GOYO (acute kidney injury) Status: Acute (8) ATN (acute tubular necrosis) Status: Acute (9) ATN (acute tubular necrosis) Status: Acute (10) Hypophosphatemia Status: Acute (11) Rhabdomyolysis Status: Acute Qualifiers: Rhabdomyolysis type: R Encounter type: E Core Measure Documentation - Palliative Care Palliative Care/ Comfort Measures: Not Applicable - Core Measures Any of the following diagnoses?: none Exam - Physical Exam Narrative exam: Gen appearance: Not in acute distress HEENT: normocephalic, atraumatic Neck: supple, no JVD, CHANTAL Lungs: Clear to auscultation bilaterally, no crackles or wheezes Heart :S1 and S2 regular, no murmurs, rubs or gallop Abdomen: Soft, Non tender, non distended, bowel sounds present Extremities :no edema, no clubbing or cyanosis Neuro: Awake, non verbal, dementia - Constitutional Vitals: Temp Pulse Resp BP Pulse Ox 99.0 F 70 18 163/72 91 11/21/16 07:52 11/21/16 07:52 11/21/16 07:52 11/21/16 07:52 11/21/16 07:52 Plan Activity: advance as tolerated Diet: low fat, low cholesterol, low salt Additional Instructions: 1.Follow up with [facility] in 3-5 days Follow up with: MAY SCHNEIDER MD [Primary Care Provider] - 3-5 Days Prescriptions: Aspirin [Aspirin BABY CHEW TAB] 81 mg PO QDAY #30 tab.chew Ciprofloxacin HCl [Ciprofloxacin TAB] 500 mg PO BID #6 tablet Cyanocobalamin [Vitamin B-12] 300 mcg PO QDAY #30 tablet Metoprolol [Lopressor TAB] 50 mg PO BID #60 tablet
[2016-11-21] MEDS: VITAMIN B-12 PO SCH (11:12)
[2016-11-21] MEDS: LOPRESSOR PO SCH (11:14)
[2016-11-21] MEDS: BABY ASPIRIN PO SCH (11:15)
--- NOTE | 2016-11-21 15:38 | Progress Note ---
Subjective - Reason for Consult Consult date: 11/21/16 Reason for consult: Psychiatry Follow-up - Chief Complaint Chief complaint: "Patient asleep" This is a 86-year-old female presents to the emergency department by EMS from home after EMS was called when the patient experienced a fall. Today patient was asleep when I arrived to her room. Per the family member, the patient had been sleeping for "a hour or more." Also, per the family member, the patient slept "okay" last night, but she may have pulled out her IV. This information was given to her by the staff. No gestures of SI/HI's and AVH's. Mental Status Exam - Vital signs Last Vital Signs Temp 98.8 F 11/21/16 11:20 Pulse 67 11/21/16 11:20 Resp 18 11/21/16 11:20 BP 153/105 11/21/16 11:20 Pulse Ox 93 11/21/16 11:20 - Exam Narrative exam: Could not complete MSE, patient asleep. Assessment and Plan Impression: Today patient was sleep when I arrived to her room. 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 Patient not in restraints. Received collateral information from family member. Last prn medication given for agitation 2016. Medical: Sepsis with UTI, Acute Encephalopathy Recommendation/Plan: Continue Haldol 5 mg IV Q6hrs PRN for agitation. Discussed proper sleep hygiene with patient and family members. Patient is pending placement to nursing/rehab facility. Delirium precautions as follows: 1. Frequently reorient patient and involve him/her in their care (simple explanations of procedures, tests, medications). 2. Lights on and shades open during daytime hours. 3. Try to avoid unnecessary interruptions to sleep during nighttime hours. 4. Obtain glasses, hearing aids from home if patient uses these at baseline. 5. Avoid medications that may exacerbate delirium (especially narcotics, benzodiazepines, barbiturates, ambien, lunesta, and medications with excessive anticholinergic properties).
[2016-11-21 15:45] VITALS: BP 149/65
== END 2016-11-21 18:40 | DRG 871 ==
LOC: ED 20:30 → CC1 11-14 02:10 → 4A 11-15 12:51
PROVIDERS: ADMIT Internal Medicine; ATTEND Internal Medicine
PROC: 3E0234Z Introduction of Serum, Toxoid and Vaccine into Muscle, Percutaneous Approach (ICD-10-PCS; principal; 2016-11-14)
DX: A41.9 Sepsis, unspecified organism (principal); G92 Toxic encephalopathy; N39.0 Urinary tract infection, site not specified; I48.91 Unspecified atrial fibrillation; E87.6 Hypokalemia; G30.9 Alzheimer's disease, unspecified; F02.80 Dementia in other diseases classified elsewhere, unspecified severity, without behavioral disturbance, psychotic disturbance, mood disturbance, and anxiety; Z90.710 Acquired absence of both cervix and uterus; Z82.49 Family history of ischemic heart disease and other diseases of the circulatory system
CPT/HCPCS: 36415; 70450; 71010; 80048; 80053; 81001; 82140; 82550; 82553; 82607; 82962; 83036; 83735; 84100; 84443; 84484; 85025; 85027; 85610; 85730; 86592; 87040; 87086; 90732; 93005; 93010; 93306; 94760; 96374; 96375; G8978-GP; G8979-GP; G8987-GO; G8988-GO; J0153; J0696; J1630; J1650; J3420; J7030; J7040